=== PATIENT | female | born 1955 | race Caucasian/White ===

== ENCOUNTER → 2016-10-13 | Outpatient (CLI) | payer BC ==
[~2016-10-13] MED LIST: ALBU1AER9 INH; CHOL1TAB46 PO; CYAN100T6 PO; FLVHFA44 INH; GABA1CAP PO
--- NOTE | 2016-10-13 15:55 | MAMMOGRAPHY REPORT ---
BILATERAL DIGITAL SCREENING MAMMOGRAM WITH CAD: 10/13/2016 CLINICAL HISTORY: Routine screening. Patient has no complaints. TECHNIQUE: Current study was also evaluated with a Computer Aided Detection (CAD) system. Bilatera l CC and MLO views were obtained. COMPARISON: Comparison is made to exams dated: 10/09/2015 mammogram, 07/24/2013 mammogram, 10/08/2014 mammogram, 07/10/2012 mammogram, 06/11/2010 mammogram - [facility], and 8. BREAST COMPOSITION: The tissue of both breasts is heterogeneously dense, which may obscure small ma sses. FINDINGS: There is an asymmetry with questionable associated architectural distortion seen within t he right superior breast middle depth on the MLO view only, which may represent normal overlapping f ibroglandular tissue although spot compression tomosynthesis views, right XCCL view, and possible br east ultrasound are recommended for further evaluation. The remainder of both breasts are stable compared to prior exams, without suspicious masses, calcifi cations, or areas of architectural distortion noted. IMPRESSION: ACR BI-RADS CATEGORY 0: INCOMPLETE EVALUATION: NEED ADDITIONAL IMAGING EVALUATION Right breast asymmetry, for which additional imaging evaluation is recommended. The patient will be called to schedule an appointment. Approximately 10% of breast cancers are not detected with mammography. A negative mammographic repor t should not delay biopsy if a clinically suggestive mass is present. Jerri Kraus M.D. /:10/13/2016 15:25:10 Record Clerk: Lala ARZOLA(Namrata)(Josef), [facility] letter sent: Addl Imaging 0 BI-RADS Code: ACR BI-RADS Category 0: Incomplete Evaluation: Need Additional Imaging Evaluation
== END | disposition home or self-care (01) ==
LOC: C.MAMM 07:31
PROVIDERS: ATTEND Obstetrics & Gynecology
DX: Z12.31 Encounter for screening mammogram for malignant neoplasm of breast (principal); N64.9 Disorder of breast, unspecified

== ENCOUNTER → 2016-10-21 | Outpatient (CLI) | payer BC ==
--- NOTE | 2016-10-21 12:49 | MAMMOGRAPHY REPORT ---
UNILATERAL RIGHT DIGITAL DIAGNOSTIC MAMMOGRAM TOMOSYNTHESIS AND TARGETED RIGHT ULTRASOUND: 10/21/2016 CLINICAL HISTORY: Callback from screening mammogram for right breast asymmetry. TECHNIQUE: Breast tomosynthesis in addition to standard 2D mammography was performed. Spot bianka alma right MLO and full field right ML 2-D and tomosynthesis images and right X CCL views were obtai jane. COMPARISON: Comparison is made to exams dated: 10/13/2016 mammogram, 10/08/2014 mammogram, 10/09/2015 mammogram, 07/24/2013 mammogram, and 07/10/2012 mammogram - [facility]. BREAST COMPOSITION: The tissue of the right breast is heterogeneously dense, which may obscure smal l masses. FINDINGS: The previously described asymmetry partially effaces on the spot compression MLO view, an d completely effaces on the true lateral view. No architectural distortion is noted on the addition al tomosynthesis images. The asymmetry has the appearance of fibroglandular tissue on the additiona l tomosynthesis images. Targeted ultrasound was performed of the right superior breast in the region of the mammographic asy mmetry. Sonographically normal tissue is seen, without evidence of a mass or other suspicious sonog raphic abnormality. IMPRESSION: ACR-BI-RADS CATEGORY 3: PROBABLY BENIGN, TARGETED ULTRASOUND ACR-BI-RADS CATEGORY 3: ME OBABLY BENIGN Partial effacement of the right superior breast asymmetry, with no suspicious sonographic correlate evident and no architectural distortion seen on the additional views. The asymmetry is probably marium ign and likely represents normal overlapping fibroglandular tissue. Recommend follow-up diagnostic tomosynthesis mammograms and possible ultrasound of the right breast in 6 months to confirm stabilit y. The patient has been verbally notified of the results. Approximately 10% of breast cancers are not detected with mammography. A negative mammographic repor t should not delay biopsy if a clinically suggestive mass is present. Jerri Kraus M.D. /:10/21/2016 10:37:28 Meatcutter: Karolina ARZOLA(R)(M), [facility] letter sent: Follow Up Recommended 3 BI-RADS Code: ACR-BI-RADS Category 3: Probably Benign Ultrasound BI-RADS: ACR-BI-RADS Category 3: P robably Benign
== END | disposition home or self-care (01) ==
LOC: C.MAMM 08:59
PROVIDERS: ATTEND Obstetrics & Gynecology
DX: N64.89 Other specified disorders of breast (principal)

== ENCOUNTER → 2017-04-21 | Outpatient (CLI) | payer BC ==
--- NOTE | 2017-04-21 12:39 | MAMMOGRAPHY REPORT ---
UNILATERAL RIGHT DIGITAL DIAGNOSTIC MAMMOGRAM TOMOSYNTHESIS WITH CAD: 04/21/2017 CLINICAL HISTORY: Six-month follow-up of right breast asymmetry. TECHNIQUE: Breast tomosynthesis in addition to standard 2D mammography was performed. Current study was also evaluated with a Computer Aided Detection (CAD) system. Right CC and MLO 2-D and tomosynthe sis images and right ML tomosynthesis images including C views were obtained. COMPARISON: Comparison is made to exams dated: 10/21/2016 mammogram, 10/21/2016 ultrasound, 10/13/2016 mammogram, 10/09/2015 mammogram, 10/08/2014 mammogram, and 07/24/2013 mammogram - [facility]. BREAST COMPOSITION: The tissue of the right breast is heterogeneously dense, which may obscure small masses. FINDINGS: The previously described asymmetry seen within the right superior breast on the MLO view i s no longer evident on the current exam, with appearance of this region similar to multiple prior exa ms including the 2007 and 2009 exams. The tissue in this region has the appearance of normal fibrogl andular tissue on the tomosynthesis images, without a suspicious mass or architectural distortion not ed in this region. Given the decreased prominence of the asymmetry, and is benign and compatible wit h normal fibroglandular tissue. The remainder of the right breast is stable compared to prior exams, without suspicious masses, calcifications, or areas of architectural distortion noted. IMPRESSION: ACR BI-RADS CATEGORY 2: BENIGN The right breast asymmetry is no longer evident, and is benign and compatible with normal fibroglandu lar tissue. There is no mammographic evidence of malignancy in the right breast. Return to annual ma mmogram screening schedule is recommended, due September 2017. The patient has been verbally notified of the results. Approximately 10% of breast cancers are not detected with mammography. A negative mammographic report should not delay biopsy if a clinically suggestive mass is present. Jerri Kraus M.D. /:04/21/2017 09:09:22 Zipper Repairer: Aysha ARZOLA(Namrata)(Josef), [facility] letter sent: Normal 1/2 BI-RADS Code: ACR BI-RADS Category 2: Benign
== END | disposition home or self-care (01) ==
LOC: C.MAMM 08:32
PROVIDERS: ATTEND Obstetrics & Gynecology
DX: R92.2 Inconclusive mammogram (principal); N64.89 Other specified disorders of breast

== ENCOUNTER 2017-06-12 09:37 | Emergency (ER) | payer BC ==
[~2017-06-12] VITALS: Ht 162.6 cm; Wt 76.1 kg
[2017-06-12 09:46] VITALS: TEMP 36.8
[2017-06-12 10:00] VITALS: O2SAT 97
[2017-06-12 10:28] VITALS: Ht 162.6 cm; Wt 76.1 kg
[2017-06-12 10:51] LABS: BASO % 0.2 %; BASO ABS # 0.02 K/uL (0-0.2); COMPLETE YES; HEMATOCRIT 35.8 % (37-47); IG% 0.3 %; LYMPH % 9.8 %; LYMPH ABS # 1.13 K/uL (1.2-3.4); MEAN CELL VOLUME 87.1 fL (80-100); MEAN CORPUSCULAR HEMOGLOBIN 30.7 pg (25-34); MEAN CORPUSCULAR HGB CONC 35.2 g/dl (32-36); MEAN PLATELET VOLUME 10.1 fL (7.4-10.4); MONO % 9.1 %; NEUT % 80.6 %; PLATELET COUNT 185 K/uL (130-400); RED BLOOD COUNT 4.11 M/uL (4.2-5.4); WHITE BLOOD COUNT 11.48 K/uL (4.8-10.8)
[2017-06-12 11:17] LABS: ALT/SGPT 43 U/L (12-78); BLOOD UREA NITROGEN 15 mg/dl (7-18); BUN/CREATININE RATIO 11.2 (10-20); CALCIUM 9.3 mg/dl (8.5-10.1); CARBON DIOXIDE 24 mmol/L (21-32); CHLORIDE 100 mmol/L (98-107); CREATININE 1.32 mg/dl (0.60-1.20); GLUCOSE 125 mg/dl (70-99); SODIUM 132 mmol/L (136-145)
[2017-06-12 11:29] LABS: ALKALINE PHOSPHATASE 176 U/L (45-117); PHOSPHORUS 3.3 mg/dl (2.5-4.9); THYROID STIMULATING HORMONE 0.795 uIu/ml (0.300-4.500)
[2017-06-12 11:40] LABS: POTASSIUM 3.2 mmol/L (3.5-5.1)
[2017-06-12 11:41] LABS: PARTIAL THROMBOPLASTIN RATIO 1.1; PROTHROMBIN TIME (PATIENT) 11.2 SECONDS (9.0-12.0)
[2017-06-12 11:48] LABS: MAGNESIUM 2.5 mg/dl (1.8-2.4)
[2017-06-12 12:48] VITALS: BP 118/81; PULSE 78; O2SAT 98
--- NOTE | 2017-06-12 16:32 | EMERGENCY ROOM VISIT NOTE ---
History First contact with patient: 09:47 Chief Complaint: CARBON MONOXIDE EXPOSURE Stated Complaint: CARBON MONOXIDE POISONING History of Present Illness The patient is a 61 year old female who presents to the Emergency Room with multiple complaints, including daily headaches, fatigue, feeling cold and thirsty, poor appetite and dizziness. The patient reports that her symptoms started 2 weeks ago after she started to use a cold stove that is located in her living room. The patient does not have carbon monoxide detectors in her home, and is concerned that she has carbon monoxide poisoning. She does report mild shortness of breath. She denies any chest pain. The patient reports that she has seen her PCP within the past month with lab work, echocardiogram, ECG and cried ultrasound studies that have all been normal. She denies any other significant history. She currently denies any pain or myalgias. She denies any recent upper respiratory infection or cough. Review of Systems HEENT: Denies visual problems, hearing loss, tinnitus. Denies difficulty swallowing or oral lesions. Patient doesn't admit dizziness. PULMONARY: Denies cough, sputum production or hemoptysis. She does report mild shortness of breath. CARDIOVASCULAR: Denies chest pain, palpitations, dyspnea on exertion, orthopnea or peripheral edema. GASTROINTESTINAL: Denies diarrhea, constipation, nausea, vomiting, or abdominal pain. GENITOURINARY: Denies dysuria, frequency, urgency or nocturia. NEUROLOGIC: Denies history of epilepsy, CVA, TIA or chronic headaches. MUSCULOSKELETAL: Denies history of joint tenderness/swelling. SKIN: Denies rashes or lesions. PSYCHIATRIC: Denies history of depression or mental illness. ENDOCRINE: Denies history of diabetes or thyroid disorders. Past Medical/Surgical History Medical Problems: (1) Alcohol Abuse-Unspec (2) Anemia Nos (3) Cystic Kidney Disease, Unspecified (4) Depress Disorder-Unspec (5) Diaphragmatic Hernia (6) Hypopotassemia (7) Obsessive-Compulsive Personality Disorder Social History Smoking Status: Never Smoker Alcohol Use: occasionally Housing Status: lives alone Occupation Status: employed Current/Historical Medications Scheduled Gabapentin (Neurontin), 100 MG PO TID Physical Exam Vital Signs Date Time Temp Pulse Resp B/P (MAP) Pulse Ox O2 Delivery O2 Flow Rate FiO2 06/12/17 12:48 78 16 118/81 98 06/12/17 12:00 81 16 114/83 98 Room Air 06/12/17 10:34 77 06/12/17 10:00 97 Room Air 06/12/17 09:59 96 Room Air 06/12/17 09:46 36.8 85 17 118/81 97 Room Air Physical Exam CONSTITUTIONAL: Healthy and well nourished. Alert and oriented X 3 with positive affect. She does not appear in any acute distress. HEENT: Normocephalic, atraumatic. Pupils equal, round and reactive. Ears and nares are clear. No scar icterus or conjunctival injection/pallor. OROPHARYNX: No tonsillar hypertrophy or exudates. NECK: Full active range of motion without discomfort. No JVD or carotid bruits. RESPIRATORY: Clear to auscultation bilaterally with no wheezing, crackles, rhonchi or stridor. CARDIOVASCULAR: Regular rate and rhythm with no murmurs, rubs or gallops. GASTROINTESTINAL: Bowel sounds present in all quadrants. Soft and nontender to palpation. MUSCULOSKELETAL: Full range of motion of all joints without discomfort. INTEGUMENTARY: No rash or other significant dermatologic conditions noted. HEMATOLOGIC: No ecchymosis or petechiae noted. NEUROLOGIC: Cranial nerves II-XII grossly intact. No focal neurologic deficits noted. Medical Decision & Procedures Laboratory Results 06/12/17 10:40 Red Blood Count 4.11, Mean Corpuscular Volume 87.1, Mean Corpuscular Hemoglobin 30.7, Mean Corpuscular Hemoglobin Concent 35.2, Mean Platelet Volume 10.1, Neutrophils (%) (Auto) 80.6, Lymphocytes (%) (Auto) 9.8, Monocytes (%) (Auto) 9.1, Eosinophils (%) (Auto) 0.0, Basophils (%) (Auto) 0.2, Neutrophils # (Auto) 9.26, Lymphocytes # (Auto) 1.13, Monocytes # (Auto) 1.04, Eosinophils # (Auto) 0.00, Basophils # (Auto) 0.02 06/12/17 10:40 06/12/17 11:21 Test 06/12/17 10:40 06/12/17 11:20 06/12/17 11:21 White Blood Count 11.48 K/uL (4.8-10.8) Red Blood Count 4.11 M/uL (4.2-5.4) Hemoglobin 12.6 g/dL (12.0-16.0) Hematocrit 35.8 % (37-47) Mean Corpuscular Volume 87.1 fL (80-100) Mean Corpuscular Hemoglobin 30.7 pg (25-34) Mean Corpuscular Hemoglobin Concent 35.2 g/dl (32-36) Platelet Count 185 K/uL (130-400) Mean Platelet Volume 10.1 fL (7.4-10.4) Neutrophils (%) (Auto) 80.6 % Lymphocytes (%) (Auto) 9.8 % Monocytes (%) (Auto) 9.1 % Eosinophils (%) (Auto) 0.0 % Basophils (%) (Auto) 0.2 % Neutrophils # (Auto) 9.26 K/uL (1.4-6.5) Lymphocytes # (Auto) 1.13 K/uL (1.2-3.4) Monocytes # (Auto) 1.04 K/uL (0.11-0.59) Eosinophils # (Auto) 0.00 K/uL (0-0.5) Basophils # (Auto) 0.02 K/uL (0-0.2) RDW Standard Deviation 41.7 fL (36.4-46.3) RDW Coefficient of Variation 13.0 % (11.5-14.5) Immature Granulocyte % (Auto) 0.3 % Immature Granulocyte # (Auto) 0.03 K/uL (0.00-0.02) Carboxyhemoglobin 0.0 % THgb Anion Gap 8.0 mmol/L (3-11) Est Creatinine Clear Calc Drug Dose 44.1 ml/min Estimated GFR () 50.0 Estimated GFR (Non- 43.1 BUN/Creatinine Ratio 11.2 (10-20) Calcium Level 9.3 mg/dl (8.5-10.1) Phosphorus Level 3.3 mg/dl (2.5-4.9) Total Bilirubin 0.8 mg/dl (0.2-1) Alanine Aminotransferase (ALT/SGPT) 43 U/L (12-78) Alkaline Phosphatase 176 U/L (45-117) Troponin I < 0.015 ng/ml (0-0.045) Total Protein 8.3 gm/dl (6.4-8.2) Albumin 3.4 gm/dl (3.4-5.0) Thyroid Stimulating Hormone (TSH) 0.795 uIu/ml (0.300-4.500) Prothrombin Time 11.2 SECONDS (9.0-12.0) Prothromb Time International Ratio 1.0 (0.9-1.1) Activated Partial Thromboplast Time 29.7 SECONDS (21.0-31.0) Partial Thromboplastin Ratio 1.1 D-Dimer 1190 ug/L FEU (0-500) Magnesium Level 2.5 mg/dl (1.8-2.4) Direct Bilirubin 0.2 mg/dl (0-0.2) Aspartate Amino Transf (AST/SGOT) 26 U/L (15-37) Total Creatine Kinase 190 U/L (26-192) The above labs were reviewed. It is noted that the patient does have an elevated d-dimer of 1190. Troponin is normal. Patient also has mild hyponatremia, leukocytosis with left shift, hypokalemia, hypomagnesemia and elevated alkaline phosphatase. TSH is normal. ED Course Patient history and physical exam were performed. Nurse's notes were reviewed. Vital signs were reviewed and were normal. O2 saturation is 97% on room air. The patient is afebrile and normotensive. She is not tachycardic. I did suggest a comprehensive workup to evaluate for possible causes of her multiple symptoms, and the patient was initially in agreement. However, after placing several orders, the nurse reports that the patient refused all the tests because she has had these tests performed within the past month. I did discuss this with the patient during our initial evaluation. The patient specifically refused a head CT, EKG and chest x-ray. She reported that she would cooperate with lab work but nothing else. IV access was established and labs were drawn. Review of labs shows an elevated d-dimer, hyponatremia, hypokalemia. She also has a mild leukocytosis with left shift and bandemia, elevated creatinine and glucose. I spent approximately 15 minutes with the patient, going over her labs with possible etiologies for these laboratory findings. I did express my concern for her symptoms and elevated d-dimer which could indicate the possibility of a pulmonary embolus. When the patient has what imaging studies need to be performed to rule out pulmonary embolus, I explained CT angiography is preferable. The patient reports that she cannot undergo a CT scan without complete sedation. 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 In the presence of her daughter, she did express understanding of my concern for a possible pulmonary embolus, but is requesting discharge. The case was also discussed with Dr. Gillespie, ED attending physician, who agrees with current workup and outpatient follow-up. The patient was encouraged to return to the emergency department for any progressively worsening symptoms. The patient was happy with plan of care, and denied any significant symptoms at the time of discharge. Medical Decision As discussed in the previous section, with the patient's history and laboratory findings, I am most concerned about the possibility of a pulmonary embolus. Her workup today otherwise is not suggestive of anemia. She is euthyroid. Unfortunate, the patient refused any imaging studies, therefore pneumonia, pneumothorax, congestive heart failure, intracranial bleed and other differentials could not be further evaluated. Medication Reconcilliation Current Medication List: was personally reviewed by me Blood Pressure Screening Patient's blood pressure: Normal blood pressure Impression Primary Impression: Weakness Additional Impressions: Frequent headaches Hypokalemia Shortness of breath Leukocytosis, unspecified Departure Information Referrals Megan Cutler M.D. (PCP) Patient Instructions My [facility] Problem Qualifiers
== END 2017-06-12 12:50 | disposition home or self-care (01) ==
LOC: C.EDB 09:39
DX: R53.1 Weakness (principal); R51 Headache; E87.6 Hypokalemia; R06.02 Shortness of breath; D72.829 Elevated white blood cell count, unspecified; F10.10 Alcohol abuse, uncomplicated

== ENCOUNTER → 2017-06-17 | Outpatient (CLI) | payer BC ==
[~2017-06-17] MED LIST changes: -ALBU1AER9 INH; -CHOL1TAB46 PO; -CYAN100T6 PO; -FLVHFA44 INH
--- NOTE | 2017-06-17 13:12 | DIAGNOSTIC IMAGING REPORT ---
CHEST 2 VIEWS ROUTINE HISTORY: 61 years-old Female COUGH acute cough with shortness of breath COMPARISON: Chest radiograph 12/09/2015, CTA chest 01/02/2016 TECHNIQUE: PA and lateral views of the chest FINDINGS: Cardiomediastinal and hilar silhouettes are within normal limits. There is no pneumothorax, pleural effusion, focal airspace consolidation or overt pulmonary edema. Bones are grossly intact. Partially imaged lesion of the left proximal humerus appears to demonstrate rings and arcs morphology suggesting chondroid lesion. IMPRESSION: 1. No acute cardiopulmonary process. 2. Partially imaged lesion of the proximal left humerus suggests an endochondroma. The above report was generated using voice recognition software. It may contain grammatical, syntax or spelling errors. Electronically signed by: Sergei Morris M.D. 06/17/2017 1:11 PM Dictated Date/Time: 06/17/2017 1:08 PM
--- NOTE | 2017-06-17 13:55 | DIAGNOSTIC IMAGING REPORT ---
LUNG IMAGING VQ CLINICAL HISTORY: 61 years-old Female presenting with COUGH, no history of pulmonary hypertension. TECHNIQUE: Immediately following the inhalation of 33 mCi of technetium 99 M DTPA for the ventilation scan and the intravenous administration of 5.7 mCi of technetium 99 M MAA for the perfusion scan, anterior, oblique, lateral, and posterior views of the chest were obtained. Modified PIOPED II criteria were utilized for assessment. COMPARISON: Chest x-ray performed earlier the same day. FINDINGS: No mismatched defects are identified on this examination. Perfusion and ventilation to both lungs is preserved. Evidence of ingested/swallowed ventilation radiotracer with activity noted in the stomach and proximal small bowel. Reference: Modified PIOPED II criteria Normal: No perfusion defects. Very low likelihood ratio: Nonsegmental, perfusion defect < chest x-ray lesion, 1-3 small segmental defects, solitary triple matched defect (< or = 1 segment) in mid or upper lung, stripe sign, solitary large pleural effusion, > or = to 2 matched defects with regionally normal chest x-ray. High likelihood ratio: > or = 2 large mismatch segmental defects. Nondiagnostic: All other findings. IMPRESSION: Normal. Electronically signed by: Marcial Chaparro M.D. 06/17/2017 1:54 PM Dictated Date/Time: 06/17/2017 1:52 PM
== END | disposition home or self-care (01) ==
LOC: C.NUCL 12:20
PROVIDERS: ATTEND Physician Assistant
DX: R06.02 Shortness of breath (principal); R79.89 Other specified abnormal findings of blood chemistry; R05 Cough

== ENCOUNTER → 2017-10-17 | Outpatient (CLI) | payer OTHER ==
[~2017-10-17] MED LIST changes: +GABA100C13 PO; -GABA1CAP PO
--- NOTE | 2017-10-17 13:59 | MAMMOGRAPHY REPORT ---
BILATERAL DIGITAL SCREENING MAMMOGRAM TOMOSYNTHESIS WITH CAD: 10/17/2017 CLINICAL HISTORY: Routine screening. Patient has no complaints. TECHNIQUE: Breast tomosynthesis in addition to standard 2D mammography was performed. Current study was also evaluated with a Computer Aided Detection (CAD) system. COMPARISON: Comparison is made to exams dated: 04/21/2017 mammogram, 10/21/2016 mammogram, 10/21/2016 u ltrasound, 10/13/2016 mammogram, 10/09/2015 mammogram, and 10/08/2014 mammogram - [facility]. BREAST COMPOSITION: The tissue of both breasts is heterogeneously dense, which may obscure small mas ses. FINDINGS: No suspicious masses, calcifications, or areas of architectural distortion are noted in ei ther breast. There has been no significant interval change compared to prior exams. IMPRESSION: ACR BI-RADS CATEGORY 1: NEGATIVE There is no mammographic evidence of malignancy. A 1 year screening mammogram is recommended. The pa tient will receive written notification of the results. Approximately 10% of breast cancers are not detected with mammography. A negative mammographic report should not delay biopsy if a clinically suggestive mass is present. Jerri Kraus M.D. ah/:10/17/2017 07:45:30 Alarm Installer: Denise ARZOLA(R)(M), [facility] letter sent: Normal 1/2 BI-RADS Code: ACR BI-RADS Category 1: Negative
== END | disposition home or self-care (01) ==
LOC: C.MAMM 07:28
PROVIDERS: ATTEND Obstetrics & Gynecology
DX: Z12.31 Encounter for screening mammogram for malignant neoplasm of breast (principal)

== ENCOUNTER 2023-05-12 09:37 | Observation (INO) ==
[2023-05-12 11:09] LABS: Basophils # (auto) 0.01 K/uL (0.00-0.20); Basophils % (auto) 0.2 %; Hematocrit (blood only) 41.6 % (37.0-47.0); Hemoglobin 14.3 g/dl (12.0-16.0); Immature Granulocytes # (auto) 0.01 K/uL (0.01-0.20); Immature Granulocytes % (auto) 0.2 %; Lymphocytes # (auto) 0.35 K/uL (1.20-3.40); Lymphocytes % (auto) 7.2 %; Mean Corpuscular Hemoglobin 29.9 pg (25.0-34.0); Mean Corpuscular Hgb Conc 34.4 g/dL (32.0-36.0); Mean Corpuscular Volume 86.8 fL (80.0-100.0); Mean Platelet Volume 10.1 fL (9.4-12.4); Monocytes # (auto) 0.45 K/uL (0.11-0.59); Monocytes % (auto) 9.3 %; Neutrophils # (auto) 4.01 K/uL (1.40-6.50); Neutrophils % (auto) 83.1 %; Platelet Count 142 K/uL (130-400); RDW Coefficient of Variation 12.7 % (11.5-14.5); RDW Standard Deviation 39.9 fL (36.4-46.3); Red Blood Count 4.79 M/uL (4.20-5.40); White Blood Count 4.83 K/ul (4.8-10.8)
[2023-05-12 11:22] LABS: Alanine Aminotransferase 22 U/L (7-52); Albumin Level 4.9 gm/dl (3.4-5.0); Alkaline Phosphatase 107 U/L (34-104); Anion Gap 12 (3-11); Aspartate Aminotransferase 26 U/L (13-39); BUN Creatinine Ratio 16.1 (10-20); Bilirubin,Total 0.5 mg/dl (0.2-1.0); Blood Urea Nitrogen 15 mg/dl (6-23); Calcium 9.4 mg/dl (8.6-10.3); Carbon Dioxide 21 mmol/L (21-32); Chloride 105 mmol/L (98-107); Est GFR (African American) 73.2 ml/min; Est GFR (Non-African American) 63.1 ml/min; Globulin 2.5 gm/dl (2.5-4.0); Glucose 126 mg/dl (70-99(Fasting)); Potassium 3.5 mmol/L (3.5-5.1); Sodium 138 mmol/L (136-145); Total Protein 7.4 gm/dl (6.0-8.3)
[2023-05-12] MEDS ORDERED: ACETAMINOPHEN 500 MG TAB PO STA (16:15)
[2023-05-12] MEDS: SODIUM CHLORIDE 0.9% 1,000 ML IV SCH ×2 (16:27→16:34)
[2023-05-12] MEDS ORDERED: SODIUM CHLORIDE 0.9% 500 ML IV ONE ×2 (16:29→19:10)
--- NOTE | 2023-05-12 17:14 | Emergency Department Note ---
Impression & Plan Weakness, COVID-19, Adenovirus infection, Back pain, Accidental fall ED Provider Note INFORMANT: Patient ED PROVIDER(S): Ugo Palomares MD CHIEF COMPLAINT: Dizziness and weakness PLAN: Disposition: Admitted Outpatient prescription management: none Referral: None MEDICAL DECISION MAKING: Patient was seen at a time of high volume and high acuity. Protocol laboratory testing was performed initially in triage. Patient presented because of weakness and dizziness patient was febrile. She had a nonfocal examination. Patient had testing performed and was found to have a positive COVID and adenovirus. Patient's CBC and chemistry panel were unremarkable. Patient did have a borderline elevation of her cardiac troponin without much change in repeat. Patient had normal cardiac monitoring. Chest x-ray was unremarkable. Patient also had x-ray imaging of the lumbar and thoracic spine because of back pain after the fall. No acute abnormality. I did discuss CT imaging and the patient declined. After hydration the patient felt significantly better. She still had a fluctuation in her blood pressure orthostatic testing. I suspect given the patient's lack of oral intake recently likely due to the COVID-19 and adenovirus infections and she is mildly dehydrated. Further management in the hospital felt to be appropriate. Consultation was made with Dr. Oscar Doll of the [facility] service. Patient was evaluated in the ER for further management. Care/management discussed with: none Level of care consideration(s): After review of the information above and other included data, I feel the patient requires escalation of care to admission. Triage Nursing notes: reviewed and agree them. Vital Signs: reviewed and remarkable for fever Additional History obtained from: none Chronic Medical/Social Conditions affecting care: none Prior /Outside records reviewed: none Differential Diagnosis: Infection, dehydration, metabolic abnormality, hypo/hyperglycemia, electrolyte disturbance, anemia, hypoxia, cardiac sources, intracerebral event, toxicologic, neurologic, as well as other pathologies. Diagnostics, independently interpreted by me: ECG: none. Cardiac Monitoring: Cardiac monitoring ordered by me: The patient was placed on continuous cardiac monitoring and observed. It revealed a normal sinus rhythm at 70 beats per minute without ectopy or evidence of dysrhythmia. No ST-T wave abnormality appreciated. Medical decision rules: none Imaging studies: X-rays as above. Patient refused CT imaging. HPI: The patient is a 67-year-old female who arrives for evaluation of dizziness and weakness. Patient notes she is felt under the weather for 2 days. She states that it is difficult to get up and move around. She got weak and fell last night. She denies hitting her head. She does note that she strained her back in the thoracic and lumbar region. Patient has had a decreased appetite and has not been eating or drinking well. She also notes fevers, chills. Pt denies LOC, headache, diaphoresis, visual changes, neck pain, chest pain, breathing difficulties, nausea, vomiting, abdominal pain, melena, hematochezia, urinary symptoms, numbness, lymphadenopathy, rash, or other complaints. PAST MEDICAL HISTORY: See Below, asthma PAST SURGICAL HISTORY: See Below, SOCIAL HISTORY: See Below, non-smoker HOME MEDICATIONS: See Below ALLERGIES: See Below VITALS: See Below PHYSICAL EXAMINATION: GENERAL: Awake, tired appearing, in no distress HENT: Normocephalic, atraumatic. Oropharynx unremarkable. EYES: Normal conjunctiva. Sclera non-icteric. NECK: Inspection normal. Non-tender. Supple. No nuchal rigidity. FROM. No masses. RESPIRATORY: Clear to auscultation. No wheezes. No rales. Normal respiratory effort. CARDIAC: Normal rate. Normal rhythm. No murmurs. No rubs. Extremities warm and well perfused. Pulses equal. No JVD. GI: Soft, non-distended. No tenderness to palpation. No rebound or guarding. No masses. RECTAL: Deferred. MUSCULOSKELETAL: Atraumatic. Chest examination reveals no tenderness. The back is symmetrical on inspection without obvious abnormality. There is no CVA tenderness to palpation. Mild thoracic and lumbar paraspinal muscle tenderness to palpation. No step-offs. No midline bony tenderness. No joint edema. LOWER EXTREMITIES: Calves are equal size bilaterally and non-tender. No edema. No discoloration. NEURO: Normal sensorium. No sensory or motor deficits noted. SKIN: No rash or jaundice noted. PROCEDURES: none CRITICAL CARE: none OBSERVATION NOTE: none Past Med/Surg History Medical History (Updated 05/12/23 @ 18:07 by Ugo Palomares MD) Moderate persistent asthma Overweight (BMI 25.0-29.9) Shortness of breath Shortness of breath Family History (Updated 03/12/20 @ 15:46 by JULIA Cuevas) Other Cancer Lung disease Denies family history of Diabetes Heart disease Social History (Updated 03/12/20 @ 15:45 by JULIA Cuevas) Smoking Status: Never smoker Hx Alcohol Use: No Hx Substance Use: No Feels Safe at Home: Yes Allergies Allergies Allergy/AdvReac Type Severity Reaction Status Date / Time Sulfa (Sulfonamide Allergy Mild "SULFA Verified 03/12/20 08:54 Antibiotics) DRUGS" Penicillins Allergy Unknown Verified 03/12/20 08:54 wheat Allergy Unknown . Verified 03/12/20 08:54 ORANGE JELLO Allergy Unknown CAN'T GET Uncoded 03/12/20 08:54 BREATH Home Meds Home Medications Medication Instructions Recorded Confirmed gabapentin 100 mg capsule See Rx Instructions .Route .COMPLEX 03/12/20 05/12/23 Results & Data (ED) Vital Signs Vital Signs - 24 hr 05/12/23 09:47 05/12/23 16:36 05/12/23 15:38 Temperature 37.8 C H Temperature Source Temporal Artery Scan Pulse Rate - Lying Pulse Rate - Sitting Pulse Rate - Standing Pulse Rate 100 H 97 H Pulse Rate [Apical] Pulse Rate from SpO2 Sensor Pulse Rhythm [Apical] Pulse Strength [Apical] Respiratory Rate 20 Respiratory Effort / Characteristics Non-Labored Respiratory Depth Normal Respiratory Pattern Blood Pressure - Lying Blood Pressure - Sitting Blood Pressure- Standing Blood Pressure 124/84 Blood Pressure [Right Arm] Blood Pressure Mean 97 Blood Pressure Mean [Right Arm] Blood Pressure Position [Right Arm] Pulse Oximetry 95 98 Oxygen Delivery Method Room Air Room Air Sepsis Recent Fever Within 48 Hours No Sepsis New/Unexplained Change in Mental Status N/A Sepsis Action Taken by Nursing No Action Required 05/12/23 15:38 05/12/23 16:30 05/12/23 17:31 Temperature 36.8 C Temperature Source Oral Pulse Rate - Lying Pulse Rate - Sitting Pulse Rate - Standing Pulse Rate 98 H 87 Pulse Rate [Apical] Pulse Rate from SpO2 Sensor 98 H 87 Pulse Rhythm [Apical] Pulse Strength [Apical] Respiratory Rate 17 21 17 Respiratory Effort / Characteristics Non-Labored Spontaneous Respiratory Depth Normal Respiratory Pattern Regular Blood Pressure - Lying Blood Pressure - Sitting Blood Pressure- Standing Blood Pressure 153/99 H 119/96 Blood Pressure [Right Arm] Blood Pressure Mean 117 103 Blood Pressure Mean [Right Arm] Blood Pressure Position [Right Arm] Pulse Oximetry 96 92 94 Oxygen Delivery Method Room Air Room Air Room Air Sepsis Recent Fever Within 48 Hours Sepsis New/Unexplained Change in Mental Status Sepsis Action Taken by Nursing 05/12/23 18:00 05/12/23 18:03 05/12/23 19:00 Temperature 36.8 C Temperature Source Oral Pulse Rate - Lying 77 Pulse Rate - Sitting 83 Pulse Rate - Standing 87 Pulse Rate 81 Pulse Rate [Apical] 82 Pulse Rate from SpO2 Sensor 81 Pulse Rhythm [Apical] Regular Pulse Strength [Apical] Normal Respiratory Rate 21 17 Respiratory Effort / Characteristics Non-Labored Spontaneous Respiratory Depth Normal Respiratory Pattern Regular Blood Pressure - Lying 121/94 Blood Pressure - Sitting 114/67 Blood Pressure- Standing 83/56 L Blood Pressure 109/73 Blood Pressure [Right Arm] 98/67 L Blood Pressure Mean 85 Blood Pressure Mean [Right Arm] 77 Blood Pressure Position [Right Arm] Semi-fowlers Pulse Oximetry 96 94 Oxygen Delivery Method Room Air Room Air Sepsis Recent Fever Within 48 Hours Sepsis New/Unexplained Change in Mental Status Sepsis Action Taken by Nursing Laboratory Data 05/12/23 10:45 05/12/23 10:45 Lab Results 05/12/23 05/12/23 05/12/23 Range/Units 10:45 10:45 16:30 WBC 4.83 (4.8-10.8) K/ul RBC 4.79 (4.20-5.40) M/uL Hgb 14.3 (12.0-16.0) g/dl Hct 41.6 (37.0-47.0) % MCV 86.8 (80.0-100.0) fL MCH 29.9 (25.0-34.0) pg MCHC 34.4 (32.0-36.0) g/dL RDW Std Deviation 39.9 (36.4-46.3) fL RDW Coeff of Raymond 12.7 (11.5-14.5) % Plt Count 142 (130-400) K/uL MPV 10.1 (9.4-12.4) fL Immature Gran % (Auto) 0.2 % Neut % (Auto) 83.1 % Lymph % (Auto) 7.2 % [place] % (Auto) 9.3 % Eos % (Auto) 0.0 % Baso % (Auto) 0.2 % Neut # (Auto) 4.01 (1.40-6.50) K/uL Lymph # (Auto) 0.35 L (1.20-3.40) K/uL [place] # (Auto) 0.45 (0.11-0.59) K/uL Eos # (Auto) 0.00 (0.00-0.50) K/uL Baso # (Auto) 0.01 (0.00-0.20) K/uL Immature Gran # (Auto) 0.01 (0.01-0.20) K/uL Sodium 138 (136-145) mmol/L Potassium 3.5 (3.5-5.1) mmol/L Chloride 105 (98-107) mmol/L Carbon Dioxide 21 (21-32) mmol/L Anion Gap 12 H (3-11) BUN 15 (6-23) mg/dl Creatinine 0.93 (0.6-1.2) mg/dl Est Cr Clr Drug Dosing Not Reportable Est GFR ( Amer) 73.2 ml/min Est GFR (Non-Af Amer) 63.1 ml/min BUN/Creatinine Ratio 16.1 (10-20) Glucose 126 H (70-99(Fasting)) mg/dl Calcium 9.4 (8.6-10.3) mg/dl Total Bilirubin 0.5 (0.2-1.0) mg/dl AST 26 (13-39) U/L ALT 22 (7-52) U/L Alkaline Phosphatase 107 H (34-104) U/L Troponin I High Sens (0-14) pg/ml Total Protein 7.4 (6.0-8.3) gm/dl Albumin 4.9 (3.4-5.0) gm/dl Globulin 2.5 (2.5-4.0) gm/dl Albumin/Globulin Ratio 2.0 (0.9-2) Urine Color Urine Appearance (Clear) Urine pH (4.5-7.5) Ur Specific [place] (1.000-1.030) Urine Protein (Negative) Urine Glucose (UA) (Negative) Urine Ketones (Negative) Urine Blood (Negative) Urine Nitrite (Negative) Urine Bilirubin (Negative) Urine Urobilinogen (Negative) Ur Leukocyte Esterase (Negative) Urine WBC (Auto) (0-5) /hpf Urine RBC (Auto) (0-4) /hpf U Hyaline Cast (Auto) (0-5) /lpf U Epithel Cells (Auto) (0-5) /lpf Urine Bacteria (Auto) (Negative) Adenovirus (PCR) DETECTED A* (NotDetected) B. pertussis DNA (PCR) Not Detected (NotDetected) B.parapertussis DNA PCR Not Detected (NotDetected) C. pneumoniae DNA (PCR) Not Detected (NotDetected) Coronavirus OC43 (PCR) Not Detected (NotDetected) Coronavirus HKU1 (PCR) Not Detected (NotDetected) Coronavirus 229E (PCR) Not Detected (NotDetected) SARS-CoV-2 (PCR) DETECTED A* (NotDetected) Coronavirus NL63 (PCR) Not Detected (NotDetected) Human Metapneumovir PCR Not Detected (NotDetected) Influenza Type A (PCR) Not Detected (NotDetected) Influenza Type B (PCR) Not Detected (NotDetected) M. pneumoniae (PCR) Not Detected (NotDetected) Parainfluenza 1 (PCR) Not Detected (NotDetected) Parainfluenza 2 (PCR) Not Detected (NotDetected) Parainfluenza 3 (PCR) Not Detected (NotDetected) Parainfluenza 4 (PCR) Not Detected (NotDetected) RSV (PCR) Not Detected (NotDetected) Entero/Rhino (PCR) Not Detected (NotDetected) 05/12/23 05/12/23 05/12/23 Range/Units 17:49 18:00 21:06 WBC (4.8-10.8) K/ul RBC (4.20-5.40) M/uL Hgb (12.0-16.0) g/dl Hct (37.0-47.0) % MCV (80.0-100.0) fL MCH (25.0-34.0) pg MCHC (32.0-36.0) g/dL RDW Std Deviation (36.4-46.3) fL RDW Coeff of Raymond (11.5-14.5) % Plt Count (130-400) K/uL MPV (9.4-12.4) fL Immature Gran % (Auto) % Neut % (Auto) % Lymph % (Auto) % [place] % (Auto) % Eos % (Auto) % Baso % (Auto) % Neut # (Auto) (1.40-6.50) K/uL Lymph # (Auto) (1.20-3.40) K/uL [place] # (Auto) (0.11-0.59) K/uL Eos # (Auto) (0.00-0.50) K/uL Baso # (Auto) (0.00-0.20) K/uL Immature Gran # (Auto) (0.01-0.20) K/uL Sodium (136-145) mmol/L Potassium (3.5-5.1) mmol/L Chloride (98-107) mmol/L Carbon Dioxide (21-32) mmol/L Anion Gap (3-11) BUN (6-23) mg/dl Creatinine (0.6-1.2) mg/dl Est Cr Clr Drug Dosing Est GFR ( Amer) ml/min Est GFR (Non-Af Amer) ml/min BUN/Creatinine Ratio (10-20) Glucose (70-99(Fasting)) mg/dl Calcium (8.6-10.3) mg/dl Total Bilirubin (0.2-1.0) mg/dl AST (13-39) U/L ALT (7-52) U/L Alkaline Phosphatase (34-104) U/L Troponin I High Sens 14.6 H 16.7 H (0-14) pg/ml Total Protein (6.0-8.3) gm/dl Albumin (3.4-5.0) gm/dl Globulin (2.5-4.0) gm/dl Albumin/Globulin Ratio (0.9-2) Urine Color Dark Yellow Urine Appearance Clear (Clear) Urine pH 5.5 (4.5-7.5) Ur Specific [place] 1.024 (1.000-1.030) Urine Protein 1+ H (Negative) Urine Glucose (UA) Negative (Negative) Urine Ketones 2+ H (Negative) Urine Blood Trace H (Negative) Urine Nitrite Negative (Negative) Urine Bilirubin 1+ H (Negative) Urine Urobilinogen Negative (Negative) Ur Leukocyte Esterase Trace H (Negative) Urine WBC (Auto) 1-5 (0-5) /hpf Urine RBC (Auto) 0-4 (0-4) /hpf U Hyaline Cast (Auto) 1-5 (0-5) /lpf U Epithel Cells (Auto) >30 H (0-5) /lpf Urine Bacteria (Auto) Negative (Negative) Adenovirus (PCR) (NotDetected) B. pertussis DNA (PCR) (NotDetected) B.parapertussis DNA PCR (NotDetected) C. pneumoniae DNA (PCR) (NotDetected) Coronavirus OC43 (PCR) (NotDetected) Coronavirus HKU1 (PCR) (NotDetected) Coronavirus 229E (PCR) (NotDetected) SARS-CoV-2 (PCR) (NotDetected) Coronavirus NL63 (PCR) (NotDetected) Human Metapneumovir PCR (NotDetected) Influenza Type A (PCR) (NotDetected) Influenza Type B (PCR) (NotDetected) M. pneumoniae (PCR) (NotDetected) Parainfluenza 1 (PCR) (NotDetected) Parainfluenza 2 (PCR) (NotDetected) Parainfluenza 3 (PCR) (NotDetected) Parainfluenza 4 (PCR) (NotDetected) RSV (PCR) (NotDetected) Entero/Rhino (PCR) (NotDetected) Administered Medications Sodium Chloride (Nss) 1,000 mls @ 125 mls/hr IV .Q8H LUCIE Stop: 06/11/23 16:29 Last Admin: 05/13/23 01:04 Dose: Not Given Documented By: Admin: 05/12/23 16:34 Dose: Not Given Documented By: TACOS Discontinued Medications Acetaminophen (Acetaminophen 500 Mg Tab) 1,000 mg PO NOW STA Stop: 05/12/23 16:16 Last Admin: 05/12/23 16:27 Dose: 1,000 mg Documented By: TACOS Sodium Chloride (Nss) 500 mls @ 999 mls/hr IV .Q31M ONE Stop: 05/12/23 16:59 Last Infusion: 05/12/23 17:27 Dose: 0 mls/hr Documented By: Admin: 05/12/23 16:34 Dose: 999 mls/hr Documented By: TACOS Sodium Chloride (Nss) 500 mls @ 999 mls/hr IV .Q31M ONE Stop: 05/12/23 19:40 Last Infusion: 05/12/23 20:14 Dose: 0 mls/hr Documented By: Admin: 05/12/23 19:48 Dose: 999 mls/hr Documented By: TACOS Ibuprofen (Ibuprofen 600 Mg Tab) 600 mg PO NOW STA Stop: 05/12/23 20:00 Last Admin: 05/12/23 21:20 Dose: 600 mg Documented By: TACOS Imaging Data Radiologist's Impression: Chest X-Ray 05/12/23 16:29 XR chest 1V not portable CLINICAL HISTORY: fever TECHNIQUE: Single frontal radiograph of the chest was obtained. Comparison: Comparison is made to chest radiograph 05/10/[address] chest 01/02/2016 FINDINGS: No lines and tubes are seen. Cardiomegaly is noted. The lungs are clear. No evidence of pleural effusion or pneumothorax. Partial visualization of a sclerotic lesion in the left humeral medulla, likely benign and unchanged from prior exams. IMPRESSION: No acute abnormalities and in particular no radiographic evidence of pneumonia. ACT 112: Negative or not required by law. Electronically signed by: Hal Nelson M.D. 05/12/2023 5:24 PM Lumbar Spine X-Ray 05/12/23 16:29 XR lumbar spine min 4V routine CLINICAL HISTORY: fall TECHNIQUE: 5 views of the lumbar spine were obtained. Comparison: Comparison is made to lumbar spine radiograph 05/12/2023 FINDINGS: There is no evidence of an acute fracture. Degenerative changes are seen in the lumbar spine. The alignment is normal. Partial visualization of calcifications i n the pelvis likely representing calcified fibroids. IMPRESSION: Degenerative changes as above without acute fracture or subluxation. ACT 112: Negative or not required by law. Electronically signed by: Hal Nelson M.D. 05/12/2023 5:30 PM Thoracic Spine X-Ray 05/12/23 16:29 XR thoracic spine 3V routine CLINICAL HISTORY: fall TECHNIQUE: 3 views of the thoracic spine were obtained. Comparison: None available at the time of this dictation. FINDINGS: No fractures or subluxations are identified. Degenerative changes are seen in the thoracic spine. Alignment appears unremarkable. Prevertebral soft tissues are within normal limits. IMPRESSION: Degenerative changes as above without acute fracture or subluxation. ACT 112: Negative or not required by law. Electronically signed by: Hal Nelson M.D. 05/12/2023 5:26 PM Discharge Plan Visit Data Chief Complaint: Dizziness Stated Complaint: DIZZY,WEAKNESS,FELL,BACK PAIN ED Provider: Ugo Palomares Discharge Problem: Weakness, COVID-19, Adenovirus infection, Back pain, Accidental fall Discharge Instructions Interventions: ED Discharge Assessment Last Done: 05/13/23 01:05
--- NOTE | 2023-05-12 17:25 | XRay Report ---
XR chest 1V not portable CLINICAL HISTORY: fever TECHNIQUE: Single frontal radiograph of the chest was obtained. Comparison: Comparison is made to chest radiograph 05/10/[address] chest 01/02/2016 FINDINGS: No lines and tubes are seen. Cardiomegaly is noted. The lungs are clear. No evidence of pleural effus ion or pneumothorax. Partial visualization of a sclerotic lesion in the left humeral medulla, likely benign and unchanged from prior exams. IMPRESSION: No acute abnormalities and in particular no radiographic evidence of pneumonia. ACT 112: Negative or not required by law. Electronically signed by: Hal Nelson M.D. 05/12/2023 5:24 PM
--- NOTE | 2023-05-12 17:28 | XRay Report ---
XR thoracic spine 3V routine CLINICAL HISTORY: fall TECHNIQUE: 3 views of the thoracic spine were obtained. Comparison: None available at the time of this dictation. FINDINGS: No fractures or subluxations are identified. Degenerative changes are seen in the thoracic spine. Ali gnment appears unremarkable. Prevertebral soft tissues are within normal limits. IMPRESSION: Degenerative changes as above without acute fracture or subluxation. ACT 112: Negative or not required by law. Electronically signed by: Hal Nelson M.D. 05/12/2023 5:26 PM
--- NOTE | 2023-05-12 17:32 | XRay Report ---
XR lumbar spine min 4V routine CLINICAL HISTORY: fall TECHNIQUE: 5 views of the lumbar spine were obtained. Comparison: Comparison is made to lumbar spine radiograph 05/12/2023 FINDINGS: There is no evidence of an acute fracture. Degenerative changes are seen in the lumbar spine. The ali gnment is normal. Partial visualization of calcifications in the pelvis likely representing calcified fibroids. IMPRESSION: Degenerative changes as above without acute fracture or subluxation. ACT 112: Negative or not required by law. Electronically signed by: Hal Nelson M.D. 05/12/2023 5:30 PM
[2023-05-12 17:41] LABS: Bordetella parapertussis PCR Not Detected (NotDetected); Bordetella pertussis PCR Not Detected (NotDetected); Chlamydia pneumoniae PCR Not Detected (NotDetected); Coronavirus 229E PCR Not Detected (NotDetected); Coronavirus HKU1 PCR Not Detected (NotDetected); Coronavirus NL63 PCR Not Detected (NotDetected); Coronavirus OC43PCR Not Detected (NotDetected); Human Metapneumovirus PCR Not Detected (NotDetected); Influenza A PCR Not Detected (NotDetected); Influenza B PCR Not Detected (NotDetected); Mycoplasma pneumoniae PCR Not Detected (NotDetected); Parainfluenza Virus 1 PCR Not Detected (NotDetected); Parainfluenza Virus 2 PCR Not Detected (NotDetected); Parainfluenza Virus 3 PCR Not Detected (NotDetected); Parainfluenza Virus 4 PCR Not Detected (NotDetected); Respiratory Syncytial VirusPCR Not Detected (NotDetected); Rhinovirus/Enterovirus PCR Not Detected (NotDetected)
[2023-05-12 18:00] LABS: Coronavirus CoV-2 (COVID19)PCR DETECTED (NotDetected)
[2023-05-12 18:01] LABS: Adenovirus PCR DETECTED (NotDetected)
[2023-05-12 18:28] LABS: Appearance Urine Clear (Clear); Bacteria Urine Automated Negative (Negative); Blood Urine Trace (Negative); Color Urine Dark Yellow; Epithelial Cell Urine Auto >30 /lpf (0-5); Glucose Urine UA Negative (Negative); Ketones Urine 2+ (Negative); Leukocyte Esterase Urine Trace (Negative); Nitrite Urine Negative (Negative); Protein Urine 1+ (Negative); RBC Urine Automated 0-4 /hpf (0-4); Specific Gravity Urine 1.024 (1.000-1.030); Urobilinogen Urine Negative (Negative); pH Urine 5.5 (4.5-7.5)
[2023-05-12 18:31] LABS: Bilirubin Urine 1+ (Negative)
[2023-05-12] MEDS ORDERED: IBUPROFEN 600 MG TAB PO STA (19:59)
--- NOTE | 2023-05-12 22:02 | History & Physical Report ---
Date of Service May 12, 2023 Assessment & Plan (1) Weakness: Plan: 67yo Female with PMH asthma, R leg surgery here for concern weakness. Weakness -in the setting of COVID, adenovirus, and poor oral intake -Received 1L NSS in ED, symptoms improved -admit to med/tele -PT/OT ordered. Elevated Trop -trop 14.6 repeat pending COVID19/Adenovirus -ordered isolation precautions -given normal O2 sat on RA no SOB noted no wheeze, no need to treat COVID19 at this time R Knee pain -continue gabapentin FENa: regular Code Status: Full DVT PPX: SCDs PT/OT: ordered Dispo: med/tele Deborah Gordon D.O. PGY 3, FCM (2) COVID-19: (3) Adenovirus infection: History of Present Illness Chief Complaint: Weakness Primary Care Provider: Megan Cutler MD 67yo Female with PMH asthma, R leg surgery here for concern weakness. Patient states she was feeling poorly for the last few weeks, states other people noticed her decreased appetite. States last night she developed chills, was trying to get back in bed however had back pain leg weakness fell on the floor instead, denies hitting her head. She was able to return to bed and sleep. In the morning she continued to have back pain, states she crawled downstairs and sat on the couch, afterwards was not able to get off the couch. She is uncertain if she had a fever, denies SOB N/V chest pain abd pain D/C, denies URI symptoms but did take a decongestant. Patient states she typically has a poor appetite eats maybe one meal a day, has been more difficult since she started feeling unwell. She has been stressed recently, her friend is getting treated for cancer. In ED patient was given tylenol and NSS 1L, states she felt improved afterwards. Of note she was found to be positive for COVID and Adenovirus, patient states she got it after babysitting children who were COVID positive. Patient states she lives alone, does not need assistance while walking. She does have a cat that scratched her face recently. States she has not needed regular medication for ashtma in years, does use a prednisone taper during change of seasons. Allergies Allergy/AdvReac Type Severity Reaction Status Date / Time Sulfa (Sulfonamide Allergy Mild "SULFA Verified 03/12/20 08:54 Antibiotics) DRUGS" Penicillins Allergy Unknown Verified 03/12/20 08:54 wheat Allergy Unknown . Verified 03/12/20 08:54 ORANGE JELLO Allergy Unknown CAN'T GET Uncoded 03/12/20 08:54 BREATH Home Medications Medication Instructions Recorded Confirmed Type gabapentin 100 mg capsule See Rx Instructions .Route .COMPLEX 03/12/20 05/12/23 History Past Med/Surg History Medical History (Updated 05/12/23 @ 18:07 by Ugo Palomares MD) Moderate persistent asthma Overweight (BMI 25.0-29.9) Shortness of breath Shortness of breath Family History (Updated 03/12/20 @ 15:46 by JULIA Cuevas) Other Cancer Lung disease Denies family history of Diabetes Heart disease Social History (Updated 03/12/20 @ 15:45 by JULIA Cuevas) Smoking Status: Never smoker Hx Alcohol Use: No Hx Substance Use: No Feels Safe at Home: Yes Physical Exam Constitutional: well developed, well nourished, cooperative and comfortable Eyes: PERRL, conjunctivae normal, anicteric sclerae ENMT: external ear and nose normal, oropharynx normal Neck: trachea midline, no thyromegaly Respiratory: normal respiratory effort, lungs clear to auscultation Cardiovascular: RRR, no murmur, no edema Gastrointestinal (Abdomen): Inspection/Auscultation: abdomen normal to inspection Percussion/Palpation: abdomen soft; abdomen nontender Skin: no rashes, warm and dry Results & Data Results & Data Vital Signs (Past 12 Hours) Vital Signs Temp Pulse Pulse Resp BP BP Pulse Ox 05/12/23 19:00 36.8 C 82 17 98/67 L 94 05/12/23 18:00 81 21 109/73 96 05/12/23 17:31 87 17 119/96 94 05/12/23 16:30 98 H 21 153/99 H 92 05/12/23 15:38 36.8 C 17 96 05/12/23 15:38 98 05/12/23 16:36 97 H O2 Del Method 05/12/23 19:00 Room Air 05/12/23 18:00 Room Air 05/12/23 17:31 Room Air 05/12/23 16:30 Room Air 05/12/23 15:38 Room Air 05/12/23 15:38 Room Air 05/12/23 16:36 Supervising Physician Co-Signing Physician Notes Attending addendum: I have physically seen this patient, have supervised the medical residents activities, and agree with the H&P unless as otherwise noted. Assessment and Plan: Acute onset of generalized weakness- Studies positive for COVID-19, adenovirus and generalized poor oral intake Symptoms are somewhat improved after receiving 1 L normal saline in the ED Consult PT/OT Continue IV fluid rehydration Elevated troponin- Troponin 14.6 on admission with repeat pending Likely type II supply/demand mismatch COVID-19/adenovirus- Usual isolation precautions Primarily supportive treatment, no aggressive interventions Resident Activity Tracking Resident Involvement: Resident Care Provided Care Provided: Adult Hospital Medicine
[2023-05-13] MEDS ORDERED: ACETAMINOPHEN 325 MG TAB PO PRN (01:04)
[2023-05-13] MEDS ORDERED: POLYETHYLENE (MIRALAX) 17 GM PACK PO PRN (01:04)
[2023-05-13] MEDS: SODIUM CHLORIDE 0.9% 1,000 ML IV SCH ×3 (01:04→09:26)
[2023-05-13] MEDS: GABAPENTIN 100 MG CAP PO SCH ×2 (01:55→09:26)
--- NOTE | 2023-05-13 08:19 | Hospitalist Progress Note ---
Date of Service May 13, 2023 Assessment & Plan (1) Weakness: Plan: 67yo Female with PMH asthma, R leg surgery here for concern weakness. Weakness -in the setting of COVID, adenovirus, and poor oral intake -Received 1L NSS in ED, symptoms improved -admit to med/tele -PT/OT ordered. Elevated Trop -trop 14.6 repeat 16,19 COVID19/Adenovirus, no pneumonia -ordered isolation precautions -given normal O2 sat on RA no SOB noted no wheeze, no need to treat COVID19 at this time R Knee pain -continue gabapentin Code Status: Full DVT PPX: SCDs PT/OT: ordered (2) COVID-19: (3) Adenovirus infection: Admission and Anticipated Discharge Date Admission Date: May 12, 2023 Results & Data Results & Data Vital Signs (Past 12 Hours) Vital Signs Pulse Pulse Resp BP Pulse Ox O2 Del Method 05/13/23 03:30 58 L 16 109/70 91 Room Air 05/13/23 01:40 59 L 05/12/23 23:00 70 18 107/67 95 Room Air 05/12/23 22:29 70 PG Care Time/CCT Total # of Minutes Spent Total Time Spent with Patient: Total time spent is greater than 50% in coordination of care (as documented) at patient's floor/unit and/or counseling patient: Coding Diagnoses Weakness R53.1 COVID-19 U07.1 Adenovirus infection B34.0
--- NOTE | 2023-05-13 17:23 | Billing Data ---
Date of Service May 13, 2023 Coding Level of Care Code 88360 INT INP/OBS CARE
--- NOTE | 2023-05-13 17:41 | Discharge Summary ---
Date of Service May 13, 2023 Admission HPI Per Admitting Provider 67yo Female with PMH asthma, R leg surgery here for concern weakness. Patient states she was feeling poorly for the last few weeks, states other people noticed her decreased appetite. States last night she developed chills, was trying to get back in bed however had back pain leg weakness fell on the floor instead, denies hitting her head. She was able to return to bed and sleep. In the morning she continued to have back pain, states she crawled downstairs and sat on the couch, afterwards was not able to get off the couch. She is uncertain if she had a fever, denies SOB N/V chest pain abd pain D/C, denies URI symptoms but did take a decongestant. Patient states she typically has a poor appetite eats maybe one meal a day, has been more difficult since she started feeling unwell. She has been stressed recently, her friend is getting treated for cancer. In ED patient was given tylenol and NSS 1L, states she felt improved afterwards. Of note she was found to be positive for COVID and Adenovirus, patient states she got it after babysitting children who were COVID positive. Patient states she lives alone, does not need assistance while walking. She does have a cat that scratched her face recently. States she has not needed regular medication for ashtma in years, does use a prednisone taper during change of seasons. Principal Diagnosis Metabolic encephalopathy secondary to COVID infection present on admission Discharge Exam Patient awake alert appropriate. Heart is regular lungs are clear without wheezes or crackles extremities without edema Discharge Data Allergies Allergy/AdvReac Type Severity Reaction Status Date / Time Sulfa (Sulfonamide Allergy Mild "SULFA Verified 03/12/20 08:54 Antibiotics) DRUGS" Penicillins Allergy Unknown Verified 03/12/20 08:54 wheat Allergy Unknown . Verified 03/12/20 08:54 ORANGE JELLO Allergy Unknown CAN'T GET Uncoded 03/12/20 08:54 BREATH Consultations 05/12/23 19:10 ED Decision to Admit Stat Hospital Course (1) Weakness: 67yo Female with PMH asthma, R leg surgery here for concern weakness. Weakness -in the setting of COVID, adenovirus, and poor oral intake markedly improved patient wishes to go -Received 1L NSS in ED, symptoms improved Elevated Trop, demand ischemia -trop 14.6 repeat 16,19 COVID19/Adenovirus, no pneumonia -given normal O2 sat on RA no SOB noted no wheeze, no need to treat COVID19 at this time offered paxlovid, pt did not want to have RX R Knee pain -continue gabapentin Code Status: Full (2) COVID-19: (3) Adenovirus infection: Total Time Total Time Spent Total Time Spent (In Minutes): greater than 30 minutes were required Discharge Plan Discharge Items Patient Disposition: Home - Self-Care Reason For Visit: WEAKNESS Discharge Diagnosis: weakness from covid infection Activity: Resume your previous activity Non-emergency contact: Primary Care Provider Call non-emergency contact if: your symptoms worsen Follow-up/Referrals: Megan Cutler MD [Primary Care Provider] - Diet: Regular Addtl Attending Provider Instructions: You have been diagnosed with covid infection, it would be recommended that you quarantine yourself for 10 days from your first test or first symptoms, and if at the 10th day you have no symptoms the you can come off quarantine but use common sense precautions. Quarantine means attempting to stay away from people who have not had an active covid infection in the past, and if you have to be around others to wear a mask even if you are indoors, do not share a room to sleep in with others until you are out of quarantine. If you still have symptoms at the 10th day, continue to quarantine until you are symptom free for 48 hours Pending Studies at Discharge: Yes Studies:: urine culture results Stand-Alone Forms: My [facility] [employer], Smoking Cessation Medications and DC Order Prescriptions: Continued gabapentin 100 mg capsule See Rx Instructions .ROUTE .COMPLEX Rx Instructions: Rx is for 200 mg QID but per pt she takes it as 100 mg BID because she cut back Discharge Orders: Discharge Order (Routine); Ordered 05/13/23 Ordered By: Wayne Tineo Admission Data Admit Date/Time: 05/12/23 22:23 Attending Provider: Wayne Tineo Admit Provider: Deborah Gordon Primary Care Provider: Megan Cutler Other Providers: Oscar Doll Other Interventions: Discharge Summary Assessment (RN) Last Done: 05/13/23 14:26 Coding Level of Care Code 93432 INP/OBS DISCH >30 MIN Diagnoses Weakness R53.1 COVID-19 U07.1 Adenovirus infection B34.0
== END 2023-05-13 19:40 | disposition home or self-care (01) | DRG 178 ==
LOC: ED 09:37 → SUATTDRO 22:23 → INTOOBSV 22:23 → EDINP 22:23

== ENCOUNTER 2024-03-31 19:18 | Observation (INO) ==
--- OUTSIDE RECORDS SUMMARY | 2024-03-31 19:23 | External Medical Summary | Summary of Care ---
Author Name Unknown Organization [facility] Address [address] [place] [address] Phone [phone] Care Team Providers Care Production Staff Worker Name Role Phone Megan Cutler MD Primary Care Provider [phone] Reason for Visit * Reason Comments Botox Injection * Precert (Within 10 days (routine)) - Authorized Specialty Diagnoses / Procedures Referred By Nella millard Referred To Contact Ophthalmology Diagnoses Blepharospasm Procedures VT INJECTION,ONABOTULINUMTOXINA VT INCOBOTULINUMTOXIN A Vinh Vazquez, [address] [facility] [place] [address] Vinh Vazquez DO [address] [facility] [address] Referral ID Status Reason Start Date Expiration Date V isits Requested Visits Authorized [id number] Authorized Precert 04/07/2023 04/05/2024 7 7 Encounter Details Date Type Department Care Team (Late st Contact Info) Description 10/31/2023 7:50 AM EDT Office Visit Ophthalmology, [facility] [address] [facility] [address] Vinh Vazquez DO [address] [place], [place] [id number] Blepharospasm* Allergies Active Allergy Reactions Criticality Noted Date Comments Azithromycin 10/01/2019 Food (See Comments) 11/17/2020 Other reaction(s): orange jellow-anaphylaxis Penicillins 09/14/2000 Sulfa Antibiotics 11/18/2014 Sulfamethoxazole-Trimethopri m 11/17/2020 Other reaction(s): rash rash rash documented as of this encounter (statuses as of 10/31/2023) Medications Medication Sig Dispensed Refills Start Date End Date Status cholecalciferol (VITAMIN D3) 400 UNIT TABS 0 Active gabapentin (NEURONTIN) 100 MG Capsule 0 10/04/2016 Active Triamcinolone Acetonide 0.1 % External Cream (Aristocort) Start: 01/14/21 10:21:00 EDT, 1 appl, topical, bid, Disp# 60 g, Refills: 2, apply to dermatitis on the leg until, Pharmacy: [id number] #[id number] 01/14/2021 Active Hospital, Clinic, or Other Facility Administered Medication Ordered Dose Route Frequency Start Date End Date Status incobotulinumtoxinA (Xeomin) inj 70 UnitsIndications:Blepharosp asm 70 Units IM ONCE 10/31/2023 10/31/2023 Active documented as of this encounter (statuses as of 10/31/2023) Active Problems Problem Noted Date Diagnosed Date 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 Caballero Deviated nasal septum 10/07/2005 Overview: Dr. Caballero Headache Overview: ICD-10 update of inactive term Anxiety state MERCEDES TOURETTE DISORDER documented as of this encounter (statuses as of 10/31/2023) Immunizations Name Administration Dates Next Due TDAP (age 11 and older)(Adacel) 11/14/2018 documented as of this encounter Social History Tobacco Use Types Packs/Day Years Used Date Smoking Tobacco: Never Smokeless Tobacco: Never Alcohol Use Standard Drinks/Week Comments Yes 0 (1 standard drink = 0.6 oz pur e alcohol) 2 drinks a month Sex and Gender Information Value Date Recorded Sex Assigned at Not on file Gender Identity Female 10/30/2023 10:47 AM EDT Sexual Orientation Not on file Job Start Date Occupation Industry Not on file Not on file Not on file documented as of this encounter Progress Notes * Vinh Vazquez DO - 10/31/2023 8:34 AM EDT Lis Candelario is a 68 year old female who presents for Xeomin injections. Pt with history of BEBand agrees to injections. Reports good response in the past but requires every 2 months. Good response but reported wearing off sooner. Family stressors reported. EXAM: See annotated facial image IMPRESSION: 1. Blepharospasms PLAN: 1. XEOMIN today Type: XEOMIN 5 units per 0.1ml Right eye central frontalis-2.5 units Procerus - 2.5units Energy Management Specialist Muscle/ medial orbicularis: 5 units Orbicularis Oculi Orbital laterally 5 units upper eyelid: Medial - none Lateral - 10 units over 2 sites Lower eyelid Medial - 2.5 units Lateral - 5 units Central procerus 2.5 units Left eye Central Frontalis - 2.5 units Procerus- 2.5 units Energy Management Specialist Muscle/medial orbicularis: 5 units Orbicularis Oculi Orbital laterally 5 units and 2.5 units central upper eyelid: Medial - Lateral - 10 units over 2 sites Lower eyelid Medial -2.5 units Lateral -5 units Total Given- 70 units Wasted- 30 units Tolerated well No complications 2. 2 month return Vinh Vazquez DO documented in this encounter Nursing Notes * Eli Guillen LPN - 10/31/2023 7:39 AM EDT Lis Candelario is a 68 year old female who presents for 2 months Botox injections. 70 units used last visit for blepharospasm. Ms. Candelario currently states pleased with past results. documented in this encounter Plan of Treatment Upcoming Encounters Date Type Department Care Team (Late st Contact Info) Description 12/19/2023 7:50 AM EDT Office Visit Ophthalmology, [address] [place] [address] Vinh Vazquez, DO [address] [place] [address] Health Maintenance Due Date Last Done Comments DXA Scan 1954 Lipid Panel 1954 Depression Screening 1966 Hepatitis C Screening 1972 Mammogram 1994 Cologuard 1999 Colonoscopy 1999 Colorectal Cancer Screening 1999 Fecal Occult Blood Test 1999 Sigmoidoscopy 1999 Zoster Vaccines (1 of 2) 2004 Pneumococcal Vaccine: 65+ Ye ars (1 of 1 - PCV) 2019 COVID-19 Vaccine (1 - 2022-2 4 season) 2023 Influenza Vaccine (FLU shot) (Season Ended) 2024 DTaP,Tdap,and Td Vaccines (2 - Td or Tdap) 11/14/2028 11/14/2018 GARDASIL-HPV IMMUNIZATION SERIES Aged Out No longer eligible based on patient's age to complete this topic Hepatitis B Aged Out No longer eligi ble based on patient's age to complete this topic MENINGOCOCCAL (MENACTRA/MENVEO) Aged Out No longer eligible based on patient's age to complete this topic documented as of this encounter Medical Devices Not on filedocumented as of this encounter Visit Diagnoses Diagnosis Blepharospasm- Primary documented in this encounter Care Teams Production Staff Worker Relationship Specialty Start Date End Date Megan Cutler MD [address] [place] [id number] PCP - General Family Medicine 08/11/16 documented as of this encounter
--- OUTSIDE RECORDS SUMMARY | 2024-03-31 19:23 | External Medical Summary | Summary of Care ---
Author Name Unknown Organization [facility] Address [address] [facility] [address] Phone [phone] Care Team Providers Care Editing Internship Name Role Phone Megan Cutler MD Primary Care Provider [phone] Reason for Visit * Reason Comments Follow Up * Precert (Within 10 days (routine)) - Authorized Specialty Diagnoses / Procedures Referred By Nella millard Referred To Contact Ophthalmology Diagnoses Blepharospasm Procedures VT INJECTION,ONABOTULINUMTOXINA VT INCOBOTULINUMTOXIN A Vinh Vazquez DO [address] [facility] [place] [address] Vinh Vazquez DO [address] [facility] [place] [address] Referral ID Status Reason Start Date Expiration Date V isits Requested Visits Authorized [id number] Authorized Precert 04/07/2023 04/05/2024 7 7 Encounter Details Date Type Department Care Team (Late st Contact Info) Description 12/19/2023 7:50 AM EDT Office Visit Ophthalmology, [facility] [address] [place] [address] Vinh Vazquez DO [address] [place], [place] [phone] Blepharospasm* Allergies Active Allergy Reactions Criticality Noted Date Comments Azithromycin 10/01/2019 Food (See Comments) 11/17/2020 Other reaction(s): orange jellow-anaphylaxis Penicillins 09/14/2000 Sulfa Antibiotics 11/18/2014 Sulfamethoxazole-Trimethopri m 11/17/2020 Other reaction(s): rash rash rash documented as of this encounter (statuses as of 12/19/2023) Medications Medication Sig Dispensed Refills Start Date End Date Status cholecalciferol (VITAMIN D3) 400 UNIT TABS Active gabapentin (NEURONTIN) 100 MG Capsule 10/04/2016 Active Triamcinolone Acetonide 0.1 % External Cream (Aristocort) Start: 01/14/21 10:21:00 EDT, 1 appl, topical, bid, Disp# 60 g, Refills: 2, apply to dermatitis on the leg until, Pharmacy: [id number] 01/14/2021 Active documented as of this encounter (statuses as of 12/19/2023) Active Problems Problem Noted Date Diagnosed Date 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 Caballero Deviated nasal septum 10/07/2005 Overview: Dr. Caballero Headache Overview: ICD-10 update of inactive term Anxiety state MERCEDES TOURETTE DISORDER documented as of this encounter (statuses as of 12/19/2023) Immunizations Name Administration Dates Next Due TDAP [...] Progress Notes * Vinh Vazquez DO - 12/19/2023 7:36 AM EDT Pt presented for Xeomin but only 7 weeks since last injection too soon Resecheduled to Next Tuesday at 8 am Vinh Vazquez DO 12/19/2023 7:36 AM documented in this encounter Plan of Treatment Health Maintenance Due Date Last Done Comments [...] Primary documented in this encounter Care Teams Editing Internship Relationship Specialty Start Date End Date Megan Cutler MD [address] [place] [id number] PCP - General Family Medicine 08/11/16 documented as of this encounter
--- OUTSIDE RECORDS SUMMARY | 2024-03-31 19:23 | External Medical Summary | Continuity of Care Document ---
Author Name Unknown Organization [place] [id number] [facility] Address [address], [place] [id number] Care Team Providers Care Store Coordinator Name Role Phone Megan Cutler Primary Care Physician [phone] [id number] Date(s): 12/07/23 - 12/07/23 [facility] [address], [address] [place] [address] [phone] Encounter Diagnosis Annual physical exam(Discharge Diagnosis) - 12/06/23 Asthma(Discharge Diagnosis) - 12/06/23 Fatigue(Discharge Diagnosis) - 12/06/23 Fatty liver disease, nonalcoholic(Discharge Diagnosis) - 12/06/23 Glucose intolerance (impaired glucose tolerance)(Discharge Diagnosis) - 12/06/23 Hyperlipidemia(Discharge Diagnosis) - 12/06/23 Body mass index [BMI] 29.0-29.9, adult(Discharge Diagnosis) - 12/07/23 Acute blepharitis(Discharge Diagnosis) - 12/07/23 Blepharitis of both eyes(Discharge Diagnosis) - 12/07/23 Discharge Disposition: Home or Self Care Attending Physician: MD Cutler Amy L Allergies, Adverse Reactions, Alerts Substance Reaction Severity Status azithromycin eyes swelling Active Bactrim DS 1 rash Active Allergy Not found in Search orange jellow-anaphylaxis Active PCN (penicillin) Anaphylaxis difficulty breathing syncope Active 1rash Assessment and Plan Extracted from: Title:Office Visit Note Author:MD Cutler Amy L D ate:12/07/23 1.Annual physical exam Normal exam, healthy lifestyle. Get CMP & lipids. Up to date for breast cancer screening, she declines colon cancer screening &shingles/pneumonia vaccines. Return in 1 yr. 2.Blepharitis of both eyes STATUS: acute, worse. DATA: hx & exam reviewed. GOAL: resolve skin rash. PLAN: discussed possible precipitants of this. She realizes that oral prednisone is not the usual tx for this. However, since she is not having any response to current topical steroid, will send in 5 days of Pred 10mg BID. 3.Asthma STATUS: Chronic, improved. DATA: hx & examreviewed. . GOAL: control allergic sx.Maintain respiratory stability. PLAN: she has not needed her rescue inhaler for some time. 4.Glucose intolerance (impaired glucose tolerance) Status : chronic, controlled. Data : dietreviewed. Goal : maintain normal blood sugars. Plan : [id number]. Discussed"pre-diabetes", as well as need to limit dietary carbs & continue to work on weight loss. 5.Fatigue STATUS : chronic, improved. DATA : hx & exam reviewed. GOAL : restore energy. PLAN : hadlabs, including CBC & TSH in 07/23, so these were not repeated. 6.Fatty liver disease, nonalcoholic STATUS: Chronic, stable. DATA: Labs reviewed. GOAL: Maintain hepatic stability. PLAN: recheckLFT's. Keep up good work with diet & weight loss. 7.Hyperlipidemia STATUS : chronic, stable. DATA : diet & exercise reviewed. GOAL: improve metabolic profile. PLAN : continue to monitor lifestyle. Get lipids & LFTs. Return in 1 yr, if labs all normal. Immunizations Given and Recorded Vaccine Date Status Refusal Reason tetanus/diphtheria/pertuss, acel (Tdap) 11/14/18 G iven Medications albuterol CFC free 90 mcg/inh MDI Start: 06/16/18 15:10:00 EST, 1 puff, inhaled, qid, Disp# 1 each, PRN: as needed for wheezing, [facility]acy: [facility] [place] [address] Start Date: 06/16/18 Status: Ordered fluticasone 50 mcg/inh nasal spray Start: 05/19/23 11:08:00 EDT, 1 spray, each nostril, bid, Disp# 16 g, Pharmacy: [facility]/pharmacy #[id number] Start Date: 05/19/23 Status: Ordered gabapentin 100 mg oral capsule Start: 07/29/23 9:03:00 EST, 2 cap, PO, bid, Disp# 360 cap, Refills: 3, Pharmacy: [facility] Start Date: 07/29/23 Stop Date: 07/23/24 Status: Ordered LORazepam 0.5 mg oral tablet Start: 07/29/23 11:01:00 EST, 1 tab, PO, tid, Disp# 90 tab, Refills: 0, PRN: as needed for anxiety,Pharmacy: [facility][id number] Start Date: 07/29/23 Status: Ordered predniSONE 10 mg oral tablet Start: 12/07/23 16:21:00 EDT, 1 tab, PO, bid, Disp# 10 tab, Refills: 0, [id number] Start Date: 12/07/23 Stop Date: 12/12/23 Status: Ordered Mental Status 12/07/23 Barriers to Learning one year None evide nt Mandatory Health Literacy Documentation Yes Health Literacy Communication Barriers N ever Primary Language Nepalese Problem List Condition Confirmation Course Effective Dates Status H ealth Status Informant Acute asthma exacerbation Confirmed Active Acute blepharitis Confirmed Active Acute asthma exacerbation Confirmed Active Acute asthma exacerbation Confirmed Active Acute asthma exacerbation Confirmed Active Allergic rhinitis Confirmed Active Alopecia Confirmed Active Anxiety Confirmed Active Asthma Confirmed Active Blepharitis of both eyes Confirmed Active BLEPHAROSPASM Confirmed Active Cyst, Hurt's knee Confirmed Active ESOPHAGEAL REFLUX Confirmed Active Fatigue Confirmed Active Fatigue Confirmed Active Fever Confirmed Active GERD (gastroesophageal reflux disease) Confirmed Active IVORY (generalized anxiety disorder) Confirmed Active Hiatal hernia Confirmed Active Hyperglycemia Confirmed Active Hyperlipidemia Confirmed Active Glucose intolerance (impaired glucose tolerance) Confirmed Active Urinary frequency Confirmed Active Insomnia Confirmed Active Arthralgia Confirmed Active Chronic joint pain Confirmed Active Nephrolithiasis Confirmed Active Hepatomegaly Confirmed Active Hair loss Confirmed Active Memory loss Confirmed Active Microscopic hematuria Confirmed Active Near syncope Confirmed Active Neuralgia Confirmed Active Fatty liver disease, nonalcoholic Confirmed Active Mild obesity Confirmed Active Osteopenia Confirmed Active Overweight Confirmed Active Overweight Confirmed Active Annual physical exam Confirmed Active PTSD (post-traumatic stress disorder) Confirmed Active Acute recurrent sinusitis Confirmed Active Night terrors, adult Confirmed Active Snores Confirmed Active Solitary Pulmonary Nodule Confirmed Active Stress Confirmed Active UI (urinary incontinence) Confirmed Active Vitamin D deficiency Confirmed Active Weakness Confirmed Active White blood cell disorder Confirmed Active Diagnosis Diagnosis Type Effective Dates Health Status Clinical Service Informant Fatigue Discharge Diagnosis 12/06/23 Annual physical exam Discharge Diagnosis 12/06/23 Asthma Discharge Diagnosis 12/06/23 Fatty liver disease, nonalcoholic Discharge Diagnosis 12/06/23 Glucose intolerance (impaired glucose tolerance) Discharge Diagnosis 12/06/23 Hyperlipidemia Discharge Diagnosis 12/06/23 Body mass index [BMI] 29.0-29.9, adult Discharge Diagnosis 12/07/23 Non-Specified Acute blepharitis Discharge Diagnosis 12/07/23 Non-Specified Blepharitis of both eyes Discharge Diagnosis 12/07/23 Procedures Procedure Date Related Diagnosis Body Site Status Mammogram - screening 1 01/07/23 C ompleted Mammogram 2 01/05/22 Completed Mammogram 3 01/02/21 Completed Mammogram 4 01/02/20 Completed Chest x-ray 5 05/10/19 Completed Mammogram 6 10/27/18 Completed Mammogram 7 10/17/17 Completed CXR - Chest X-ray 8 06/17/17 Compl eted VQ scan normal 9 06/17/17 Complete d Mammogram 10 04/21/17 Completed Mammogram 11, 12 10/21/16 Complete d Mammogram - screening 13, 14 10/13/16 Completed Eye surgery 09/29/16 Completed Arthroscopy of knee 15 02/17/16 Co mpleted Date of last PAP test 16 01/05/[address] 17 01/02/16 Completed Doppler 18 01/02/16 Completed CXR - Chest X-ray 19 12/09/15 Comp leted X-ray of left knee 20 06/17/15 Com pleted Chest x-ray 21 05/01/15 Completed Mammogram - screening 22 10/08/14 Completed MRI of brain 23 10/04/14 Completed right kathleen and ankle surgery 12/06/12 Completed cataract surgery 07/27/11 Complete d dilation and curettage Co mpleted history of wrist surger C ompleted hysteroscopy Completed sinus Completed tonsillectomy Completed 1IMPRESSION: ACR BI-RADS CATEGORY 2: BENIGN There is no mammographic edvidence of malignancy. A 1 year screening mammogram is recommended. (01/08/2024) The patient will receive written notification of the results. 2No mammographic evidence of malignancy. 1 year screening mammogram is recommended. 31. There is no mammographic evidence of malignancy. 1 year screening mammogram is recommended. 2. Also recommend clinical follow up for elft breast pain reported by the patient. If the findings are clinically concerning, a targeted ultrasound could be performed for further evaluation. 4No mammographic evidence of malignancy. 1 year screening mammogram is recommended. 5[facility] Impresion: 1. No active disease in the chest 6No mammographic evidence of malignancy. 1 year screening mammogram is recommended. 7There is no mammographic evidence of malignancy. 1 year screening mammogram is recommended. 81. No acute cardiopulmonary process. 2. Partially imaged lesion of the proximal left humerus suggests an endochondroma. 9Normal. 10The right breast asymmetry is no longer evident, and is benign and compatible with normal fibroglandular tissue. There is no mammographic evidence of malignancy in the right breast. return to annual mammogram screening schedule is recommended, due September 2017. 11Partial effacement of the right superior breast asymmetry, with no suspicious sonographic correlateevident and no architectural distortion seen on the additional views. The asymmetry is probably benign and likely represents normal overlapping fibroglandular tissue. Recommend follow up diagnostic tomosynthesis mammograms and possible ultrasound of the right breast in 6 months to confirm stability. 12Unilat. R diagnostic mammo - BIRADS 3 13[facility] Impression: ACR BI-RADS CATEGORY 1: NEGATIVE 1. There is no mammographic evidence of malignancy. A 1 year screening mammogram is recommended. 14right breast asymmetry, for which additional imaging evaluation is recommended. 15post. horn radial tear of left medial meniscus; Grade 4 articular damage to lateral facet of patella 16Negative for intraepithelial lesion or malignancy. 17No evidence of pulmonary embolus. 18No evidence of lower extemity DVT. 19Mild cardiac enlargement with no acute cardiopulmonary abnormality. 201. Mild arthritic change. 2. Meniscal degeneration along with a radial tear involving the body of the medial meniscus. 3. Nonaggressive bone lesion within the distal femur posteriorly. 21Nonspecific chronic interstitial thickening. No acute disease. 22No mammographic evidence of malignancy. 1 year screening recommended. 231. No acute intracranial findings. 2. Mild small vessel ischemic disease. 3. No significant change in appearance of the brain. Vital Signs Most recent to oldest [Reference Range]: 1 Height 162 cm (12/07/23 3:56 PM) Patient Weight 76.3 kg (12/07/23 3:56 PM) Body Mass Index 29.07 kg/m2 (12/07/23 3:56 PM) Respiratory Rate 18 br/min (12/07/23 3:56 PM) Blood Pressure 124/88mmHg (12/07/23 3:56 PM) Social History Social History Type Response Smoking Status Never smoked cigaret bandar Sex Female FCM Outpt Note * MD He, Megan Castillo: PERFORM Event Display: FCM Outpt Note Authored Date: Chief Complaint CPE. Itch around eyes, redness. History of Present Illness * This patient is being followed longitudinally for chronic serious medical problems by Dr. Megan Cutler. Their most recent visitwith Dr. Cutler:07/29/23 CPE: Here for a health maintenance complete physical exam and lab review SEPARATE PROBLEMS IN ADDITION TO HEALTH MAINTENANCE: Also presents to address NEW or CHRONIC medical issues. NEW CONCERNS(s): Eyelid irritation - she had tried a new body wash & new shampoo. Now her eyelids are red & swollen. She's been using the hydrocortisone cream recommended by her eye doctor, but it has nothelped. She is "begging" for 5 days of prednisone, as this has worked well for her in past. CHRONIC PROBLEMS FOLLOW UP: See list detailed in the Assessment and Plan. CC: No acute complaints at this time. HOSPITALIZATIONS: + hospitalizations in 05/23 for COVID & weakness, no severe acute injuries not accounted for in chart. DENTAL: no routine dental care EYE: Routine eye care yearly, without issue presently, except as above PSFSHx: Histories updated and reviewed with patient with changes reflected. SAFETY: Feeling safe at home and in relationships without concern. MAMMOGRAM: last one01/21, reviewed with pt. Has one scheduled for 01/22. COLONOSCOPY: Reviewed last COLO never and need for next COLO: now IMMUNIZATIONS: Reviewed in EHR. Immunizations that are due: shingles, pneumococcal ?? Review of Systems Review of Systems- Constitutional: no fatigue or changes in weight. HEENT: no vision changes, or sinus congestion. Respiratory: no cough, SOB, or wheezing. Cardiac: no chest pain, palpitations or pedal edema. GI: no abdominal pain, vomiting or change in bowel habits. : no dysuria. Neurologic: no headaches. Musculoskeletal: No joint pains. Physical Exam Vitals & Measurements RR:18 BP:124/88 SpO2:96% HT:162cm WT:76.300kg(Dosing) WT:76.3kg BMI:29.07 PE : Alert, in NAD. HEENT - PERRL. Upper & lower eyelids with diffuse mild erythema, swelling & lichenification. TM's - normal. Nares - clear. Oropharynx - normal. Neck - supple, without thyromegaly or lymphadenopathy. Lungs - clear, with good breath sounds bilaterally. Heart - RRR without murmur. No pedal edema. Abdomen - +BS, soft, NT without HSM or mass. Neuro - alert & oriented, speech & cognition normal. Skin - warm & dry. Psych - affect appropriate. Assessment/Plan 1.Annual physical exam Normal exam, healthy lifestyle. Get CMP & lipids. Up to date for breast cancer screening, she declines colon cancer screening &shingles/pneumonia vaccines. Return in 1 yr. 2.Blepharitis of both eyes STATUS: acute, worse. DATA: hx & exam reviewed. GOAL: resolve skin rash. PLAN: discussed possible precipitants of this. She realizes that oral prednisone is not the usualtx for this. However, since she is not having any response to current topical steroid, will send in 5 days of Pred 10mg BID. 3.Asthma STATUS: Chronic, improved. DATA: hx & examreviewed. . GOAL: control allergic sx.Maintain respiratory stability. PLAN: she has not needed her rescue inhaler for some time. 4.Glucose intolerance (impaired glucose tolerance) Status : chronic, controlled. Data : dietreviewed. Goal : maintain normal blood sugars. Plan : [id number]. Discussed"pre-diabetes", as well as need to limit dietary carbs & continue to work on weight loss. 5.Fatigue STATUS : chronic, improved. DATA : hx & exam reviewed. GOAL : restore energy. PLAN : hadlabs, including CBC & TSH in 07/23, so these were not repeated. 6.Fatty liver disease, nonalcoholic STATUS: Chronic, stable. DATA: Labs reviewed. GOAL: Maintain hepatic stability. PLAN: recheckLFT's. Keep up good work with diet & weight loss. 7.Hyperlipidemia STATUS : chronic, stable. DATA : diet & exercise reviewed. GOAL: improve metabolic profile. PLAN : continue to monitor lifestyle. Get lipids & LFTs. Return in 1 yr, if labs all normal. Problem List/Past Medical History Ongoing Acute asthma exacerbation Acute asthma exacerbation Acute asthma exacerbation Acute asthma exacerbation Acute blepharitis Acute recurrent sinusitis Allergic rhinitis Alopecia Annual physical exam Anxiety Arthralgia Asthma Blepharitis of both eyes BLEPHAROSPASM Chronic joint pain Cyst, Hurt's knee ESOPHAGEAL REFLUX Fatigue Fatigue Fatty liver disease, nonalcoholic Fever IVORY (generalized anxiety disorder) GERD (gastroesophageal reflux disease) Glucose intolerance (impaired glucose tolerance) Hair loss Hepatomegaly Hiatal hernia Hyperglycemia Hyperlipidemia Insomnia Memory loss Microscopic hematuria Mild obesity Near syncope Nephrolithiasis Neuralgia Night terrors, adult Osteopenia Overweight Overweight PTSD (post-traumatic stress disorder) Snores Solitary Pulmonary Nodule Stress UI (urinary incontinence) Urinary frequency Vitamin D deficiency Weakness White blood cell disorder Historical Abdominal pain, acute, right upper quadrant Acute allergic rhinitis Acute asthma Acute asthma exacerbation Acute bronchitis Acute sinusitis Acute upper respiratory infection Acute weakness Altered mental state Ankle fracture, right Asthma exacerbation Atypical syncope Bacterial lobar pneumonia BV (bacterial vaginosis) Change in vision Chest pain Chest pain, pleuritic CONFUSION Dermatitis herpetiformis Dizzinesses Dyspnea Early satiety Fatigue Fatigue Fatty liver Fever Fibroid Hematuria Influenza Medial epicondylitis Paresthesia of arm SINUSITIS Weight disorder Procedure/Surgical History Mammogram - screening| Service Date: 01/07/2023Mammogram| Service Date: 01/05/2022Mammogram| Service Date: 01/02/2021Mammogram| Service Date: 01/02/2020Chest x-ray| Service Date: 05/10/2019Mammogram| Service Date: 10/27/2018Mammogram| Service Date: 10/17/2017VQ scan normal| Service Date: 06/17/2017CXR - Chest X-ray| Service Date: 06/17/2017Mammogram| Service Date: 04/21/2017Mammogram| Service Date: 10/21/2016Mammogram - screening| Service Date: 10/13/2016Eye surgery| Service Date: 09/29/2016Arthroscopy of knee| Service Date: 02/17/2016Date of last PAP test| Service Date: 01/05/2016Chest CT| Service Date: 01/02/2016Doppler| Service Date: 09/2015CXR - Chest X-ray| Service Date: 12/09/2015X-ray of left knee| Service Date: 06/17/2015Chest x-ray| Service Date: 05/01/2015Mammogram - screening| Service Date: 10/08/2014MRI of brain| Service Date: 10/04/2014right kathleen and ankle surgery| Service Date: 12/06/2012cataract s urgery| Service Date: 07/27/2011hysteroscopydilation and curettagetonsillectomyhistory of wrist surgersinus Medications albuterol(albuterol CFC free 90 mcg/inh MDI), 1 puff, inhaled, qid, PRN fluticasone nasal(fluticasone 50 mcg/inh nasal spray), 1 spray, each nostril, bid gabapentin(gabapentin 100 mg oral capsule), 200 mg= 2 cap, PO, bid, 3 refills LORazepam(LORazepam 0.5 mg oral tablet), 0.5 mg= 1 tab, PO, tid, PRN predniSONE(predniSONE 10 mg oral tablet), 10 mg= 1 tab, PO, bid Allergies Allergy Not found in Searchorange jellow-anaphylaxis Bactrim DSrash PCN (penicillin)Anaphylaxis, difficulty breathing, syncope azithromycineyes swelling Social History Smoking Status Never smoked cigarettes Alcohol - No Risk Use:Current Type:Liquor Frequency:1-2 times per month Average drinks per episode in last year:2 Employment/School Status:Employed Description:[employer] at [employer] Tobacco - Denies Tobacco Use Family History High Blood Pressure: Mother. Lung cancer..: Mother. Prostate cancer..: Father. TIA: Mother. Health Status Family Member(s) Immunizations Vaccine Date Status tetanus/diphtheria/pertuss, acel (Tdap) 11/14/2018 Given Recommendations Health Maintenance Pending(in the next year) OverDue Adult Influenza Vaccine due01/28/23and every 1year Due Adult COVID-19 Vaccination due12/07/23Unknown Frequency Adult Social Determinants of Health Screening due12/07/23Unknown Frequency Medicare Annual Wellness Visit due12/07/23and every 1year Osteoporosis Screening due12/07/23One-time only Pneumococcal Vaccine Older Adults due12/07/23One-time only Shingles Vaccine due12/07/23One-time only Satisfied(in the past 1 year) Satisfied Body Mass Index on12/07/23.Satisfied by MARIA R Levine Hannah Refused Colorectal Cancer Screening on02/17/23.Recorded by YOVANA Carver LynnaeReason: Patient Refuses Electronic Signature on File Electronically Reviewed/Signed by: Megan Cutler MD Author Signature Dt/Tm:12/07/2023 05:05 PM [employer] [address] [facility], [address] [place], [place]. [address] [facility] Patient Care team information Care Team Personnel Name: MD Cutler Amy L Position: Physician - Family Med Member Role: Primary Care Provider Address: Address: [address] [place] [address], [place] [address] Care Team Related Persons Name: DAYDAY ESPINO Address: home [address] [place] [phone]
--- OUTSIDE RECORDS SUMMARY | 2024-03-31 19:23 | External Medical Summary | Summary of Care ---
Author Name Unknown Organization [facility] Address [address] [place] [address] Phone [phone] Care Team Providers Care Real Estate Intern Name Role Phone Megan Cutler MD Primary Care Provider [phone] Reason for Visit * Reason Comments Botox Injection * Precert (Within 10 days (routine)) - Authorized Specialty Diagnoses / Procedures Referred By Nella millard Referred To Contact Ophthalmology Diagnoses Blepharospasm Procedures NE INJECTION,ONABOTULINUMTOXINA NE INCOBOTULINUMTOXIN A Vinh Vazquez DO [address] [facility] [place] [address] Vinh Vazquez DO [facility] [address] Referral ID Status Reason Start Date Expiration Date V isits Requested Visits Authorized [id number] Authorized Precert 04/07/2023 04/05/2024 7 7 Encounter Details Date Type Department Care Team (Late st Contact Info) Description 02/27/2024 7:50 AM EDT Office Visit Ophthalmology, [facility] [address] [place] [address] Vinh Vazquez DO [address] [place], [place] [id number] Blepharospasm* Allergies Active Allergy Reactions Criticality Noted Date Comments Azithromycin 10/01/2019 Food (See Comments) 11/17/2020 Other reaction(s): orange jellow-anaphylaxis Penicillins 09/14/2000 Sulfa Antibiotics 11/18/2014 Sulfamethoxazole-Trimethopri m 11/17/2020 Other reaction(s): rash rash rash documented as of this encounter (statuses as of 02/27/2024) Medications Medication Sig Dispensed Refills Start Date End Date Status cholecalciferol (VITAMIN D3) 400 UNIT TABS Active gabapentin (NEURONTIN) 100 MG Capsule 10/04/2016 Active Triamcinolone Acetonide 0.1 % External Cream (Aristocort) Start: 01/14/21 10:21:00 EDT, 1 appl, topical, bid, Disp# 60 g, Refills: 2, apply to dermatitis on the leg until, Pharmacy: [facility]/pharmacy #[id number] 01/14/2021 Active Hospital, Clinic, or Other Facility Administered Medication Ordered Dose Route Frequency Start Date End Date Status incobotulinumtoxinA (Xeomin) inj 70 UnitsIndications:Blepharosp asm 70 Units IM ONCE 02/27/2024 02/27/2024 Ended documented as of this encounter (statuses as of 02/27/2024) Active Problems Problem Noted Date Diagnosed Date 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 Caballero Deviated nasal septum 10/07/2005 Overview: Dr. Caballero Headache Overview: ICD-10 update of inactive term Anxiety state MERCEDES TOURETTE DISORDER documented as of this encounter (statuses as of 02/27/2024) Immunizations Name Administration Dates Next Due TDAP, Age 7 and older, IM (Adacel) 11/14/2018 documented as of this encounter Social History Tobacco Use Types Packs/Day Years Used Date Smoking Tobacco: Never Smokeless Tobacco: Never Alcohol Use Standard Drinks/Week Comments Yes 0 (1 standard drink = 0.6 oz pur e alcohol) 2 drinks a month Utilities Answer Date Recorded Do you have trouble paying y our heating, water, or electric bill? (Adult - for ages 18 years and over) Not on file 01/17/2024 Is your family able to pay t he heat, water, or electric bill? (Household - for ages 0-17 years) Not on file 01/17/2024 Does your family have access to good internet? (Household - for ages 0-17 years) Not on file 01/17/2024 Social Connections Answer Date Recorded How often do you feel lonely or isolated from those around you? (Adult - for ages 18 years and over) Not on file 01/17/2024 Sex and Gender Information Value Date Recorded Sex Assigned at Not on file Gender Identity Female 10/30/2023 10:47 AM EDT Sexual Orientation Not on file Job Start Date Occupation Industry Not on file Not on file Not on file documented as of this encounter Progress Notes * Vinh Vazquez DO - 02/27/2024 7:47 AM EDT Lis Garcia [employer] is a 68 year old female who returns today for Xeomin injections. Pt with history of BEB and agrees to injections. Reports good response in the past but requires every 2 months. Goodresponse. EXAM: See annotated facial image IMPRESSION: 1. Blepharospasms PLAN: 1. XEOMIN today Type: XEOMIN 5 units per 0.1ml Right eye central frontalis-2.5 units Procerus - 2.5units [place] Muscle/ medial orbicularis: 5 units Orbicularis Oculi Orbital laterally 5 units upper eyelid: Medial - none Lateral - 10 units over 2 sites Lower eyelid Medial - 2.5 units Lateral - 5 units Central procerus 2.5 units Left eye Central Frontalis - 2.5 units Procerus- 2.5 units [place] Muscle/medial orbicularis: 5 units Orbicularis Oculi Orbital laterally 5 units and 2.5 units central upper eyelid: Medial - Lateral - 10 units over 2 sites Lower eyelid Medial -2.5 units Lateral -5 units Total Given- 70 units Wasted- 30 units Tolerated well No complications 2. 2 month return Vinh Vazquez DO documented in this encounter Nursing Notes * Eli Guillen LPN - 02/27/2024 7:41 AM EDT Lis Candelario is a 68 year old female who presents for 2 months Botox injections. 70 units used last visit for blepharospasm. Ms. Candelario currently states pleased with past results. documented in this encounter Plan of Treatment Scheduled Orders Name Type Priority Associated Diagnoses Orde r Schedule DESTRUCTION OF FACE MUSCLE NERVE Procedures Routine Blepharospasm Ordered: 02/27/2024 Health Maintenance Due Date Last Done Comments [...] 4 season) 2023 Influenza Vaccine (FLU shot) (#1) 2024 DTaP,Tdap,and Td Vaccines (2 - Td or Tdap) 11/14/2028 11/14/2018 HPV (Gardasil) Vaccine Aged Out No lo nger eligible based on patient's age to complete this topic Hepatitis B Vaccine Aged Out No longe r eligible based on patient's age to complete this topic MENINGOCOCCAL (MENACTRA/MENVEO) Aged Out No longer eligible based on patient's age to complete this topic documented as of this encounter Medical Devices Not on filedocumented as of this encounter Visit Diagnoses Diagnosis Blepharospasm- Primary documented in this encounter Administered Medications Inactive Administered Medications - up to 3 most recent administrations Medication Order MAR Action Action Date Dose Rate Site incobotulinumtoxinA (Xeomin) inj 70 Units 70 Units, Intramuscular, ONCE, On 02/27/24 at 0830, For 1 dose Given 02/27/2024 8:09 AM EDT 70 Units Other-Specify documented in this encounter Care Teams Real Estate Intern Relationship Specialty Start Date End Date Megan Cutler MD [facility] [address] [place] [address] PCP - General Family Medicine 08/11/16 documented as of this encounter
--- OUTSIDE RECORDS SUMMARY | 2024-03-31 19:23 | External Medical Summary | Continuity of Care Document ---
Author Name Unknown Organization [address] Address [address] [place], [place] [id number] Care Team Providers Care Mill Feeder Name Role Phone Megan Cutler Primary Care Physician [phone] [id number] Date(s): 02/21/24 - 02/21/24 [facility] [address], [address] [place] [address] [phone] Encounter Diagnosis LOM (loss of memory)(Discharge Diagnosis) - 02/21/24 Chronic fatigue(Discharge Diagnosis) - 02/21/24 Anxiety(Discharge Diagnosis) - 02/21/24 Other amnesia(Final) - Chronic fatigue, unspecified(Final) - Unspecified symptoms and signs involving cognitive functions and awareness (Final) - Fatty (change of) liver, not elsewhere classified(Final) - Impaired glucose tolerance (oral)(Final) - Other fatigue(Final) - Discharge Disposition: Home or Self Care Attending Physician: MD He, Megan Castillo Allergies, Adverse Reactions, Alerts Substance Criticality Severity Reaction Reaction Severity Status azithromycin eyes swelling Act cheyenne Bactrim DS 1 rash Active Allergy Not found in Search orange jellow-anaphylaxis Active PCN (penicillin) Anaphylaxis difficulty breathing syncope Active 1rash Assessment and Plan Extracted from: Title:Office Visit Note Author:MD He, Megan Castillo D ate:02/21/24 1.LOM (loss of memory) STATUS: newcomplaint,worse. DATA: hx & MMSEreviewed. GOAL: eval&txcause ofcognitiveissues. PLAN: her MMSE comes out lita , whichcouldindicatesignificantproblem.However,in talkingwith her,wediscussedthe possiblerole of anxiety indrivingthis.Willget extensivelabs, toincludeTFT's & Vitamin B12 level.Referto neuro.Cont current monitoring. 2.Chronic fatigue STATUS : chronic, worse. DATA : hx reviewed. GOAL : restore energy. PLAN : get extensive labs, includingCBC, TFT's,BS, etc.Discussedroleofanxiety inthis, as well. 3.Anxiety STATUS: Chronic, worse. DATA: hx reviewed. GOAL: control anxiety, to improve functioning PLAN: discussed options.[id number] daily, ROSY.Returnin2 months for recheck, callsooner ifproblems.Cont current monitoring. Return in 2-3 months. Time:Total time spent with this patient on day of evaluation including chart review, ordering, education and coordination of care elements: _38 minutes Immunizations Given and Recorded Vaccine Date Status Refusal Reason tetanus/diphtheria/pertuss, acel (Tdap) 11/14/18 G iven Medications albuterol CFC free 90 mcg/inh MDI Start: 06/16/18 3:10:00 PM EST, 1 puff, inhaled, qid, Disp# 1 each, PRN: as needed for wheezing, Pharmacy: [facility] Start Date: 06/16/18 Status: Ordered escitalopram 10 mg oral tablet Start: 02/21/24 11:51:00 AM EDT, 1 tab, PO, Daily, Disp# 30 tab, Refills: 3 Start Date: 02/21/24 Status: Ordered fluticasone 50 mcg/inh nasal spray Start: 05/19/23 11:08:00 AM EDT, 1 spray, each nostril, bid, Disp# 16 g, Pharmacy: [facility]/pharmacy #[id number] Start Date: 05/19/23 Status: Ordered gabapentin 100 mg oral capsule Start: 07/29/23 9:03:00 AM EST, 2 cap, PO, bid, Disp# 360 cap, Refills: 3, Pharmacy: [facility] Start Date: 07/29/23 Stop Date: 07/23/24 Status: Ordered Mental Status 02/21/24 Barriers to Learning one year None evide nt Mandatory Health Literacy Documentation Yes Health Literacy Communication Barriers N ever Primary Language Burmese Problem List Condition Confirmation Course Effective Dates Status H ealth Status Informant Acute asthma exacerbation Confirmed Active Acute blepharitis Confirmed Active Acute asthma exacerbation Confirmed Active Acute asthma exacerbation Confirmed Active Acute asthma exacerbation Confirmed Active Allergic rhinitis Confirmed Active Alopecia Confirmed Active LOM (loss of memory) Confirmed Active Anxiety Confirmed Active Asthma Confirmed Active Blepharitis of both eyes Confirmed Active BLEPHAROSPASM Confirmed Active Cyst, Hurt's knee Confirmed Active ESOPHAGEAL REFLUX Confirmed Active Fatigue Confirmed Active Fatigue Confirmed Active Chronic fatigue Confirmed Active Fever Confirmed Active GERD (gastroesophageal [...] Diagnosis Diagnosis Type Effective Dates Health Status Cl inical Service Informant LOM (loss of memory) Discharge Diagnosis 02/21/24 Non-Specified Anxiety Discharge Diagnosis 02/21/24 Non-Specified Chronic fatigue Discharge Diagnosis 02/21/24 Non-Specified Procedures Procedure Date Related Diagnosis Body Site [...] 1 year screening mammogram is recommended. [facility] Impresion: 1. No active disease in the [...] 12Unilat. R diagnostic mammo - BIRADS 3 13[facility] Impression: ACR BI-RADS CATEGORY 1: NEGATIVE 1. [...] significant change in appearance of the brain. Results Laboratory List Name Date Complete Blood Count w Differential (CBC ,DIFFH) 02/21/24 Comprehensive Metabolic Panel (COMP META B PANEL) 02/21/24 Hemoglobin A1C (HEMOGLOBIN, A1C) 02/21/24 Lipid Profile (LIPOPROTEINS) 02/21/24 T4, Total (T4, TOTAL) 02/21/24 Thyroid Stimulating Hormone (TSH) 4 Vitamin B12 Level (VITAMIN B12) 02/21/24 Most recent to oldest [Reference Range]: 1 eGFR CKD-EPI [>60 mL/min/1.73 m2] 76 mL/ min/1.73 m2 1 (02/21/24 12:14 PM) Estimated Average Glucose 128 mg/dL 2 (02/21/24 12:14 PM) Non-HDL 214 mg/dL 3 (02/21/24 12:14 PM) Estimated CrCl 63.21 mL/min (02/21/24 12:59 PM) MPV [9.0-12.2 fL] 10.7 fL (02/21/24 12:14 PM) Immature Gran% 0.7 % (02/21/24 12:14 PM) Neut% 54.0 % (02/21/24 12:14 PM) Lymph% 35.2 % (02/21/24 12:14 PM) [place]% 7.2 % (02/21/24 12:14 PM) Baso% 0.8 % (02/21/24 12:14 PM) Eos% 2.1 % (02/21/24 12:14 PM) Immat Gran, Abs [0-0.4 K/uL] 0.04 K/uL (02/21/24 12:14 PM) Neut, Abs [2.0-7.7 K/uL] 3.31 K/uL (02/21/24 12:14 PM) Lymph, Abs [1.0-3.4 K/uL] 2.16 K/uL (02/21/24 12:14 PM) [place], Abs [0-1.0 K/uL] 0.44 K/uL (02/21/24 12:14 PM) Baso, Abs [0-0.1 K/uL] 0.05 K/uL (02/21/24 12:14 PM) Eos, Abs [0-0.5 K/uL] 0.13 K/uL (02/21/24 12:14 PM) Type of Diff: AUTO *Unknown* (02/21/24 PM) RDW [11.5-14.2 %] 12.9 % (02/21/24 12:14 PM) Anion Gap [5-14 mmol/L] 9 mmol/L (02/21/24:14 PM) Alb [3.5-5.0 g/dL] 4.7 g/dL (02/21/24 12:14 PM) Alk Phos [38-126 unit/L] 112 unit/L (02/21/24:14 PM) ALT [<35 unit/L] 24 unit/L (02/21/24:14 PM) AST [15-46 unit/L] 28 unit/L (02/21/24 12:14 PM) B12 [211-946 pg/mL] 562 pg/mL (02/21/24 12:14 PM) BUN [7-20 mg/dL] 24 mg/dL *HI* (02/21/24 12:14 PM) Ca [8.4-10.2 mg/dL] 9.9 mg/dL (02/21/24 12:14 PM) Chol/HDL 4 (02/21/24 12:14 PM) Chol [125-200 mg/dL] 289 mg/dL *HI* (02/21/24 12:14 PM) Cl- [96-107 mmol/L] 111 mmol/L *HI* (02/21/24:14 PM) HCO3 [22-30 mmol/L] 20 mmol/L *LOW* (7/23/24 12:14 PM) Cret [0.60-1.00 mg/dL] 0.83 mg/dL (02/21/24 12:14 PM) HbA1c [4.0-6.0 %] 6.1 % *HI* (02/21/24 12:14 PM) Glu [74-106 mg/dL] 118 mg/dL *HI* (02/21/24:14 PM) Hct [35-44 %] 45.5 % *HI* (02/21/24:14 PM) HDL [>35 mg/dL] 75 mg/dL (02/21/24:14 PM) Hgb [11.7-15.0 g/dL] 14.9 g/dL (02/21/24 PM) K [3.5-5.1 mmol/L] 4.3 mmol/L (02/21/2414 PM) LDL Chol, Calculated [50-130 mg/dL] 188 mg/dL *HI* (02/21/24: PM) MCH [28-33 pg] 29.7 pg (02/21/24:14 PM) MCHC [32-36 g/dL] 32.7 g/dL (02/21/24:14 PM) MCV [81-96 fL] 90.8 fL (02/21/24:14 PM) Na [137-145 mmol/L] 140 mmol/L (02/21/24:14 PM) Plts [150-350 K/uL] 180 K/uL (02/21/2414 PM) RBC [3.90-5.00 M/uL] 5.01 M/uL *HI* (02/21/24 12:14 PM) T4 [4.5-11.7 ug/dL] 6.4 ug/dL (02/21/24:14 PM) T Bili [0.2-1.3 mg/dL] 1.1 mg/dL (02/21/24 12:14 PM) Prot [6.3-8.2 g/dL] 7.8 g/dL (02/21/24:14 PM) TG [<200 mg/dL] 130 mg/dL (7/23/24 12:14 PM) TSH [0.47-4.68 uIU/mL] 1.03 uIU/mL 4 (02/21/24 12:14 PM) WBC [4.0-10.4 K/uL] 6.13 K/uL (02/21/24 12:14 PM) 1Result Comment: Testing Performed By: Dept of Pathology [facility], [address] [facility] [place] [address] 2Result Comment: Testing Performed By: [facility], [address], [place] [address] 3Result Comment: Testing Performed By: Dept of Pathology [facility], [address] [facility] [place] [address] 4Result Comment: Testing Performed By: Dept of Pathology [facility], [address] [facility] [address], [place] [address] Vital Signs Most recent to oldest [Reference Range]: 1 Patient Weight 75.2 kg (02/21/24 11:13 AM) Heart Rate 78 bpm (02/21/24 11:13 AM) Respiratory Rate 18 br/min (02/21/24 11:13 AM) Blood Pressure 118/70mmHg (02/21/24 11:13 AM) Cuff Pulse Pressure 48 mmHg (02/21/24 11:13 AM) BP Location # 1 Left Arm (02/21/24 11:13 AM) Social History Social History Type Response Smoking Status Never smoked cigaret bandar Sex Female Sex Representation Female (finding) FCM Outpt Note * MD He, Megan Castillo: PERFORM Event Display: FCM Outpt Note Authored Date: Chief Complaint discuss concerns with memory and out of body experiences History of Present Illness * This patient is being followed longitudinally for chronic serious medical problems by Dr. Megan Cutler. Their most recent visitwith Dr. Cutler:12/07/23. For concerns of : 1) Spells of feeling disoriented/memory loss - she goes to stores & can't remember what she came there for, or realizes that she bought things that she can't rememberbuying. She feels that her long-term memory is good, its her short-term memory that is poor. Her family or friends have commented on how bad her memory is. She starts a sentence & forgets what she was about to say & can't finish the sentence. She has never forgotten things like where she parked her car, appointments or paying bills. 2) Fatigue - she is constantly exhausted all the time, no matter how much she has slept. She feels that she sleepstoomuch. She has an excessive amount of stress, so doesn't know how much thisaffects her. 3) Anxiety -She admits that she has always had some OCD tendencies, but that these are worse now.She suspects that a neighbor may be using or selling drugs. She is so upset by this, that she "just can't let it go." When she is out in public, she gets panicky if the store is crowded, or people stand too close to her. Review of Systems Review of Systems- Constitutional: +fatigue. Respiratory: no SOB. Cardiac: no chest pain. GI: no abdominal pain.. Neurologic: no headaches Physical Exam Vitals & Measurements HR:78(Monitored) RR:18 BP:118/70 SpO2:97% WT:75.2kg WT:75.200kg(Dosing) PHQ2 Data(Data Documented on:02/21/2024 11:13) Emotional health assessment NEGATIVE General : Alert, in NAD. Respiratory : Speaks easily in full sentences, with no respiratory distress. Psych : answers all questions appropriately, mood seems normal. Assessment/Plan 1.LOM (loss of memory) STATUS: newcomplaint,worse. DATA: hx & MMSEreviewed. GOAL: eval&txcause ofcognitiveissues. PLAN: her MMSE comes out lita , whichcouldindicatesignificantproblem.However,in talkingwith her,wediscussedthe possiblerole of anxiety indrivingthis.Willget extensivelabs, toincludeTFT's & Vitamin B12 level.Referto neuro.Cont current monitoring. 2.Chronic fatigue STATUS : chronic, worse. DATA : hx reviewed. GOAL : restore energy. PLAN : get extensive labs, includingCBC, TFT's,BS, etc.Discussedroleofanxiety inthis, as well. 3.Anxiety STATUS: Chronic, worse. DATA: hx reviewed. GOAL: control anxiety, to improve functioning PLAN: discussed options.[id number] daily, ROSY.Returnin2 months for recheck, callsooner ifproblems.Cont current monitoring. Return in 2-3 months. Time:Total time spent with this patient on day of evaluation including chart review, ordering, education and coordination of care elements: _38 minutes Problem List/Past Medical History Ongoing Acute asthma exacerbation Acute asthma exacerbation Acute asthma exacerbation Acute asthma exacerbation Acute blepharitis Acute recurrent sinusitis Allergic rhinitis Alopecia Annual physical exam Anxiety Arthralgia Asthma Blepharitis of both eyes BLEPHAROSPASM Chronic fatigue Chronic joint pain Cyst, Hurt's knee ESOPHAGEAL REFLUX Fatigue Fatigue Fatty liver disease, nonalcoholic Fever IVORY (generalized anxiety disorder) GERD (gastroesophageal reflux disease) Glucose intolerance (impaired glucose tolerance) Hair loss Hepatomegaly Hiatal hernia Hyperglycemia Hyperlipidemia Insomnia LOM (loss of memory) Memory loss Microscopic hematuria Mild obesity Near syncope Nephrolithiasis Neuralgia Night terrors, adult Osteopenia Overweight Overweight PTSD (post-traumatic stress disorder) Snores Solitary Pulmonary Nodule Stress UI (urinary incontinence) Urinary frequency Vitamin D deficiency Weakness White blood cell disorder Resolved Abdominal pain, acute, right upper quadrant Acute [...] mcg/inh MDI), 1 puff, inhaled, qid, PRN escitalopram(escitalopram 10 mg oral tablet), 10 mg= 1 tab, PO, Daily, 3 refills fluticasone nasal(fluticasone 50 mcg/inh nasal spray), 1 spray, each nostril, bid gabapentin(gabapentin 100 mg oral capsule), 200 mg= 2 cap, PO, bid, 3 refills Allergies Allergy Not found in Searchorange jellow-anaphylaxis Bactrim DSrash PCN (penicillin)Anaphylaxis, difficulty breathing, syncope azithromycineyes swelling Social History Smoking Status Never smoked cigarettes Alcohol - No Risk Use:Current Type:Liquor Frequency:1-2 times per month Average drinks per episode in last year:2 Employment/School Status:Employed Description:[employer] Tobacco - Denies Tobacco Use Family History High Blood Pressure: Mother. Lung cancer..: Mother. Prostate cancer..: Father. TIA: Mother. Health Status Family Member(s) Immunizations Vaccine Date Status tetanus/diphtheria/pertuss, acel (Tdap) 11/14/2018 Given Recommendations Health Maintenance Pending(in the next year) Due Adult Influenza Vaccine due01/29/24and every 1year Adult COVID-19 Vaccination due02/21/24Unknown Frequency Adult Social Determinants of Health Screening due02/21/24Unknown Frequency Colorectal Cancer Screening due02/21/24Unknown Frequency Medicare Annual Wellness Visit due02/21/24and every 1year Osteoporosis Screening due02/21/24One-time only Pneumococcal Vaccine Older Adults due02/21/24One-time only Shingles Vaccine due02/21/24One-time only Due In Future Breast Cancer Screening not due until01/07/25and every 731day Satisfied(in the past 1 year) Satisfied Body Mass Index on12/07/23.Satisfied by MARIA R Levine Hannah Electronic Signature on File Electronically Reviewed/Signed by: Megan Cutler MD Author Signature Dt/Tm:02/21/2024 12:19 PM [facility] [address], [facility] [address] [place] [address] [facility] Patient Care team information Care Team Personnel Name: MD He, Megan Castillo Position: Physician - Family Med Member Role: Primary Care Provider Address: [address] [place] [address], [place] [address] [place] Care Team Related Persons Name: DAYDAY ESPINO
--- OUTSIDE RECORDS SUMMARY | 2024-03-31 19:23 | External Medical Summary | Summary of Care ---
Author Name Unknown Organization [facility] Address [address] [place] [address] Phone [phone] Care Team Providers Care Principal Developer Name Role Phone Megan Cutler MD Primary Care Provider [phone] Reason for Visit * Reason Comments Botox Injection * Precert (Within 10 days (routine)) - Authorized Specialty Diagnoses / Procedures Referred By Nella millard Referred To Contact Ophthalmology Diagnoses Blepharospasm Procedures OR INJECTION,ONABOTULINUMTOXINA OR INCOBOTULINUMTOXIN A Vinh Vazquez, [address] [facility] [place] [address] Vinh Vazquez DO [facility] [address] Referral ID Status Reason Start Date Expiration Date V isits Requested Visits Authorized [id number] Authorized Precert 04/07/2023 04/05/2024 7 7 Encounter Details Date Type Department Care Team (Late st Contact Info) Description 10/31/2023 7:50 AM EDT Office Visit Ophthalmology, [facility] [address] [facility] [address] Vinh Vazquez DO [address] [place], [place] [id number] Blepharospasm* Allergies Active Allergy Reactions Criticality Noted [...] to dermatitis on the leg until, Pharmacy: [facility]/pharmacy #[id number] 01/14/2021 Active Hospital, Clinic, or Other Facility Administered Medication Ordered Dose Route Frequency Start Date End Date Status incobotulinumtoxinA (Xeomin) inj 70 UnitsIndications:Blepharosp asm 70 Units IM ONCE 10/31/2023 10/31/2023 Ended documented as of this encounter (statuses [...] eye central frontalis-2.5 units Procerus - 2.5units Surveying Or Spatial Science Technician Muscle/ medial orbicularis: 5 units Orbicularis Oculi Orbital laterally 5 units upper eyelid: Medial - none Lateral - 10 units over 2 sites Lower eyelid Medial - 2.5 units Lateral - 5 units Central procerus 2.5 units Left eye Central Frontalis - 2.5 units Procerus- 2.5 units Surveying Or Spatial Science Technician Muscle/medial orbicularis: 5 units Orbicularis Oculi Orbital [...] 12/19/2023 7:50 AM EDT Office Visit Ophthalmology, [address] [place] [address] Vinh Vazquez, DO [address] [place] [address] Health Maintenance Due Date Last Done Comments [...] 70 Units 70 Units, Intramuscular, ONCE, On 10/31/23 at 0915, For 1 dose Given 10/31/2023 8:55 AM EDT 70 Units Other-Specify documented in this encounter Care Teams Principal Developer Relationship Specialty Start Date End Date Megan Cutler MD [facility] [address] [place] [address] PCP - General Family Medicine 08/11/16 documented as of this encounter
--- OUTSIDE RECORDS SUMMARY | 2024-03-31 19:23 | External Medical Summary | Continuity of Care Document ---
Author Name Unknown Organization [facility] [address] [facility] 2 Address [address] [phone] Care Team Providers Care Ventilation Equipment Tender Name Role Phone Megan Cutler Primary Care Physician [phone] [id number] Date(s): 02/08/24 - 02/08/24 [facility] [address] [place] 2 [address] [phone] Encounter Diagnosis SK (seborrheic keratosis)(Discharge Diagnosis) - 02/08/24 Discharge Disposition: Home or Self Care Attending Physician: MD Augustine David L Allergies, Adverse Reactions, Alerts Substance Criticality Severity Reaction Reaction Severity Status azithromycin eyes swelling Act cheyenne Bactrim DS 1 rash Active PCN (penicillin) Anaphylaxis difficulty breathing syncope Active Allergy Not found in Search orange jellow-anaphylaxis Active 1rash Assessment and Plan Extracted from: Title:Clinical Document Author:MD Augustine David L Date:02/08/24 OUTPATIENT NOTE Name: KENNEDY MCKEON Patient Number:[id number] : 1955 Date of Service: 02/08/2024 _ Ms. Mckeon comes in for a recheck of her skin. She has no prior history of skin cancer. She notes an irritated lesion on her chest. She does use sun protection. Physical examination: He is well-developed well-nourished white female with type II skin. Alert and oriented x 3. Examination of the face ears neck back chest hands arms legs and feet reveal some brown verruca hyperkeratotic papules on the trunk. She has a 5 mm pink Sosa hyperkeratotic inflamed papule on the mid sternal chest. She does have a some scattered benign nevi on the upper trunk and freckling on the arms. Impression: #1 seborrheic keratosis on the trunk. #2 benign nevi on the trunk. #3 inflamed seborrheic keratosis on the sternal chest. #4 no evidence for atypical nevi or skin cancer. Plan: I discussed the procedure risk benefits and scarring, she gives verbal consent for cryotherapy. Cryotherapy was applied to the irritated lesion on the chest. She tolerated very well. Wound care instructions given. Sun protection was stressed. She will return for recheck in 1 year. Immunizations Given and Recorded Vaccine Date Status Refusal Reason tetanus/diphtheria/pertuss, acel (Tdap) 11/14/18 G iven Medications albuterol CFC free 90 mcg/inh MDI Start: 06/16/18 3:10:00 PM EST, 1 puff, inhaled, qid, Disp# 1 each, PRN: as needed for wheezing, Pharmacy: [facility] [address] Start Date: 06/16/18 Status: Ordered fluticasone 50 mcg/inh nasal spray Start: 05/19/23 11:08:00 AM EDT, 1 spray, each nostril, bid, Disp# 16 g, Pharmacy: [facility] #[id number] Start Date: 05/19/23 Status: Ordered gabapentin 100 mg oral capsule Start: 07/29/23 9:03:00 AM EST, 2 cap, PO, bid, Disp# 360 cap, Refills: 3, Pharmacy: [facility] Start Date: 07/29/23 Stop Date: 07/23/24 Status: Ordered LORazepam 0.5 mg oral tablet Start: 07/29/23 11:01:00 AM EST, 1 tab, PO, tid, Disp# 90 tab, Refills: 0, PRN: as needed for anxiety, Pharmacy: [facility] #[id number] Start Date: 07/29/23 Status: Ordered predniSONE 10 mg oral tablet Start: 12/07/23 4:21:00 PM EDT, 1 tab, PO, bid, Disp# 10 tab, Refills: 0, [facility]: [id number] Start Date: 12/07/23 Stop Date: 12/12/23 Status: Ordered Problem List Condition Confirmation Course Effective Dates [...] Dates Health Status Cl inical Service Informant SK (seborrheic keratosis) Discharge Diagnosis 02/08/24 Procedures Procedure Date Related Diagnosis Body Site [...] and ankle surgery 12/06/12 Completed cataract surgery 12/27/11 Complete d dilation and curettage Co mpleted [...] 1 year screening mammogram is recommended. [facility] Impresion: 1. No active disease in the [...] R diagnostic mammo - BIRADS 3 [facility] Impression: ACR BI-RADS CATEGORY 1: NEGATIVE 1. [...] significant change in appearance of the brain. Social History Social History Type Response Smoking Status Never smoked cigaret bandar Sex Female Outpatient Note * MD Fawn, Ba Castillo: PERFORM Event Display: .Outpt Note Authored Date: [id number] OUTPATIENT NOTE Name: KENNEDY MCKEON Patient Number:[id number] : 1955 Date of Service: 02/08/2024 _ Ms. Mckeon comes in for a recheck of her skin. She has no prior history of skin cancer. She notes an irritated lesion on her chest. She does use sun protection. Physical examination: He is well-developed well-nourished white female with type II skin. Alert andoriented x 3. Examination of the face ears neck back chest hands arms legs and feet reveal some brown verruca hyperkeratotic papules on the trunk. She has a 5 mm pink Sosa hyperkeratotic inflamed papule on the mid sternal chest. She does have a some scattered benign nevi on the upper trunk and freckling on the arms. Impression: #1 seborrheic keratosis on the trunk. #2 benign nevi on the trunk. #3 inflamed seborrheic keratosis on the sternal chest. #4 no evidence for atypical nevi or skin cancer. Plan: I discussed the procedure risk benefits and scarring, she gives verbal consent for cryotherapy. Cryotherapy was applied to the irritated lesion on the chest. She tolerated very well. Wound careinstructions given. Sun protection was stressed. She will return for recheck in 1 year. Electronic Signature on File Electronically Reviewed/Signed by: Ba Augustine MD Author Signature Dt/Tm:02/08/2024 08:36 AM Department of Dermatology DLS Patient Care team information Care Team Personnel Name: MD Cutler Amy L Position: Physician - Family Med Member Role: Primary Care Provider Address: Address: [address] [place] [address] [address] [place] [address] Care Team Related Persons Name: [employer] SERVERDAYDAY Address: [address] [facility] [id number]
--- OUTSIDE RECORDS SUMMARY | 2024-03-31 19:23 | External Medical Summary | Summary of Care ---
Author Name Unknown Organization [facility] Address [address] [place] [address] Phone [phone] Care Team Providers Care Pharmacy General Manager Name Role Phone Megan Cutler MD Primary Care Provider [phone] Reason for Visit * Reason Comments Botox Injection Encounter Details Date Type Department Care Team (Late st Contact Info) Description 12/28/2023 8:00 AM EDT Office Visit Ophthalmology, [facility] 132 [facility] [place] [address] Vinh Vazquez, DO [address] [place], [place] [phone] Blepharospasm* Allergies Active Allergy Reactions Criticality Noted Date Comments Azithromycin 10/01/2019 Food (See Comments) 11/17/2020 Other reaction(s): orange jellow-anaphylaxis Penicillins 09/14/2000 Sulfa Antibiotics 11/18/2014 Sulfamethoxazole-Trimethopri m 11/17/2020 Other reaction(s): rash rash rash documented as of this encounter (statuses as of 12/28/2023) Medications Medication Sig Dispensed Refills Start Date End Date Status cholecalciferol (VITAMIN D3) 400 UNIT TABS Active gabapentin (NEURONTIN) 100 MG Capsule 10/04/2016 Active Triamcinolone Acetonide 0.1 % External Cream (Aristocort) Start: 01/14/21 10:21:00 EDT, 1 appl, topical, bid, Disp# 60 g, Refills: 2, apply to dermatitis on the leg until, Pharmacy: [id number] 01/14/2021 Active Hospital, Clinic, or Other Facility Administered Medication Ordered Dose Route Frequency Start Date End Date Status incobotulinumtoxinA (Xeomin) inj 70 UnitsIndications:Blepharosp asm 70 Units IM ONCE 12/28/2023 12/28/2023 Active documented as of this encounter (statuses as of 12/28/2023) Active Problems Problem Noted Date Diagnosed Date 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 Caballero Deviated nasal septum 10/07/2005 Overview: Dr. Caballero Headache Overview: ICD-10 update of inactive term Anxiety state MERCEDES TOURETTE DISORDER documented as of this encounter (statuses as of 12/28/2023) Immunizations Name Administration Dates Next Due TDAP [...] of this encounter Progress Notes * Vinh Vazquez, - 12/28/2023 8:03 AM EDT Lis Candelario is a 68 year old female who presents for Xeomin injections. Pt with history of BEBand agrees to injections. Reports good response in the past but requires every 2 months. Good response but reported wearing off sooner. EXAM: See annotated facial image IMPRESSION: 1. Blepharospasms PLAN: 1. XEOMIN today Type: XEOMIN 5 units per 0.1ml Right eye central frontalis-2.5 units Procerus - 2.5units Woodwinds Teacher Muscle/ medial orbicularis: 5 units Orbicularis Oculi Orbital laterally 5 units upper eyelid: Medial - none Lateral - 10 units over 2 sites Lower eyelid Medial - 2.5 units Lateral - 5 units Central procerus 2.5 units Left eye Central Frontalis - 2.5 units Procerus- 2.5 units Woodwinds Teacher Muscle/medial orbicularis: 5 units Orbicularis Oculi Orbital laterally 5 units and 2.5 units central upper eyelid: Medial - Lateral - 10 units over 2 sites Lower eyelid Medial -2.5 units Lateral -5 units Total Given- 70 units Wasted- 30 units Tolerated well No complications 2. 2 month return Vinh Vazquez DO documented in this encounter Nursing Notes * Eli Guillen LPN - 12/28/2023 8:05 AM EDT Lis Candelario is a 68 year old female who presents for 2 months Botox injections. 70 units used last visit for blepharospasm. Ms. Candelario currently states pleased with past results. documented in this encounter Plan of Treatment Upcoming Encounters Date Type Department Care Team (Late st Contact Info) Description 02/27/2024 7:50 AM EDT Office Visit Ophthalmology, [address] [address] Vinh Vazquez DO [address] [place] [id number] Scheduled Orders Name Type Priority Associated Diagnoses Orde r Schedule DESTRUCTION OF FACE MUSCLE NERVE Procedures Routine Blepharospasm Ordered: 12/28/2023 Health Maintenance Due Date Last Done Comments [...] Primary documented in this encounter Care Teams Pharmacy General Manager Relationship Specialty Start Date End Date Megan Cutler MD [address] [address] PCP - General Family Medicine 08/11/16 documented as of this encounter
--- OUTSIDE RECORDS SUMMARY | 2024-03-31 19:23 | External Medical Summary | Summary of Care ---
Author Name Unknown Organization [facility] Address [address] [place] [address] Phone [phone] Care Team Providers Care Field Artillery Radar Operator Name Role Phone Megan Cutler MD Primary Care Provider [phone] Reason for Visit * Reason Comments Botox Injection Encounter Details Date Type Department Care Team (Late st Contact Info) Description 12/28/2023 8:00 AM EDT Office Visit Ophthalmology, [facility] 132 [facility] [place] [address] Vinh Vazquez, DO [address] [place], [place] [phone] Blepharospasm* Allergies Active Allergy Reactions Criticality Noted [...] asm 70 Units IM ONCE 12/28/2023 12/28/2023 Ended documented as of this encounter (statuses [...] eye central frontalis-2.5 units Procerus - 2.5units Chronometer Tester Muscle/ medial orbicularis: 5 units Orbicularis Oculi Orbital laterally 5 units upper eyelid: Medial - none Lateral - 10 units over 2 sites Lower eyelid Medial - 2.5 units Lateral - 5 units Central procerus 2.5 units Left eye Central Frontalis - 2.5 units Procerus- 2.5 units Chronometer Tester Muscle/medial orbicularis: 5 units Orbicularis Oculi Orbital [...] 02/27/2024 7:50 AM EDT Office Visit Ophthalmology, [address] [address] Vinh Vazquez DO [address] [place] [address] Scheduled Orders Name Type Priority Associated Diagnoses [...] 70 Units 70 Units, Intramuscular, ONCE, On Tue12/28/23 at 0900, For 1 dose Given 12/28/2023 9:07 AM EDT 70 Units Other-Specify documented in this encounter Care Teams Field Artillery Radar Operator Relationship Specialty Start Date End Date Megan Cutler MD [address] [place] [address] PCP - General Family Medicine 08/11/16 documented as of this encounter
--- OUTSIDE RECORDS SUMMARY | 2024-03-31 19:23 | External Medical Summary | Summary of Care ---
Author Name Unknown Organization [facility] Address [address] [place] [address] Phone [phone] Care Team Providers Care Boat Tester Name Role Phone Megan Cutler MD Primary Care Provider [phone] Reason for Visit * Reason Comments Botox Injection * Precert (Within 10 days (routine)) - Authorized Specialty Diagnoses / Procedures Referred By Nella millard Referred To Contact Ophthalmology Diagnoses Blepharospasm Procedures [place] INJECTION,ONABOTULINUMTOXINA [place] INCOBOTULINUMTOXIN A Vinh Vazquez DO 132 [facility] [place] [address] Vinh Vazquez DO [address] [facility] [address] Referral ID Status Reason Start Date Expiration Date V isits Requested Visits Authorized [id number] Authorized Precert 04/07/2023 04/05/2024 7 7 Encounter Details Date Type Department Care Team (Late st Contact Info) Description 02/27/2024 7:50 AM EDT Office Visit Ophthalmology, [facility] [address] [place] [address] Vinh Vazquez DO [address] [place], [place] [phone] Blepharospasm* Allergies Active Allergy Reactions Criticality Noted [...] to dermatitis on the leg until, Pharmacy: [facility] #[id number] 01/14/2021 Active Hospital, Clinic, or Other Facility [...] DO - 02/27/2024 7:47 AM EDT Lis Candelario is a 68 year old female who returns today for Xeomin injections. Pt with history of BEB and agrees to injections. Reports good response in the past but requires every 2 months. Good response. EXAM: See annotated facial image IMPRESSION: 1. Blepharospasms PLAN: 1. XEOMIN today Type: XEOMIN 5 units per 0.1ml Right eye central frontalis-2.5 units Procerus - 2.5units Dictaphone Mechanic Muscle/ medial orbicularis: 5 units Orbicularis Oculi Orbital laterally 5 units upper eyelid: Medial - none Lateral - 10 units over 2 sites Lower eyelid Medial - 2.5 units Lateral - 5 units Central procerus 2.5 units Left eye Central Frontalis - 2.5 units Procerus- 2.5 units Dictaphone Mechanic Muscle/medial orbicularis: 5 units Orbicularis Oculi Orbital [...] Other-Specify documented in this encounter Care Teams Boat Tester Relationship Specialty Start Date End Date Megan Cutler MD [facility] Selam Larose [address], [place] [address] PCP - General Family Medicine 08/11/16 documented as of this encounter
--- OUTSIDE RECORDS SUMMARY | 2024-03-31 19:23 | External Medical Summary | Summary of Care ---
Author Name Unknown Organization [facility] Address [address] [place] [address] Phone [phone] Care Team Providers Care Superintendent Power Name Role Phone Megan Cutler MD Primary Care Provider [phone] Reason for Visit * Reason Comments Botox Injection * Precert (Within 10 days (routine)) - Authorized Specialty Diagnoses / Procedures Referred By Nella millard Referred To Contact Ophthalmology Diagnoses Blepharospasm Procedures [place] INJECTION,ONABOTULINUMTOXINA [place] INCOBOTULINUMTOXIN A Vinh Vazquez, 132 [facility] [place] [address] Vinh Vazquez DO [address] [facility] [address] Referral ID Status Reason Start Date Expiration Date V isits Requested Visits Authorized [id number] Authorized Precert 04/07/2023 04/05/2024 7 7 Encounter Details Date Type Department Care Team (Late st Contact Info) Description 10/31/2023 7:50 AM EDT Office Visit Ophthalmology, [facility] [address] [facility] [address] Vinh Vazquez DO [address] [place], [place] [phone] Blepharospasm* Allergies Active Allergy Reactions Criticality Noted Date Comments Azithromycin 10/01/2019 Food (See Comments) 11/17/2020 Other reaction(s): orange jellow-anaphylaxis Penicillins 09/14/2000 Sulfa Antibiotics 11/18/2014 Sulfamethoxazole-Trimethopri m 11/17/2020 Other reaction(s): rash rash rash documented as of this encounter (statuses as of 12/12/2023) Medications Medication Sig Dispensed Refills Start Date End Date Status cholecalciferol (VITAMIN D3) 400 UNIT TABS 0 Active gabapentin (NEURONTIN) 100 MG Capsule 0 10/04/2016 Active Triamcinolone Acetonide 0.1 % External Cream (Aristocort) Start: 01/14/21 10:21:00 EDT, 1 appl, topical, bid, Disp# 60 g, Refills: 2, apply to dermatitis on the leg until, Pharmacy: [facility] #[id number] 01/14/2021 Active Hospital, Clinic, or Other Facility Administered Medication Ordered Dose Route Frequency Start Date End Date Status incobotulinumtoxinA (Xeomin) inj 70 UnitsIndications:Blepharosp asm 70 Units IM ONCE 10/31/2023 10/31/2023 Ended documented as of this encounter (statuses as of 12/12/2023) Active Problems Problem Noted Date Diagnosed Date 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 Caballero Deviated nasal septum 10/07/2005 Overview: Dr. Caballero Headache Overview: ICD-10 update of inactive term Anxiety state MERCEDES TOURETTE DISORDER documented as of this encounter (statuses as of 12/12/2023) Immunizations Name Administration Dates Next Due TDAP [...] eye central frontalis-2.5 units Procerus - 2.5units Adjunct Phlebotomy Instructor Muscle/ medial orbicularis: 5 units Orbicularis Oculi Orbital laterally 5 units upper eyelid: Medial - none Lateral - 10 units over 2 sites Lower eyelid Medial - 2.5 units Lateral - 5 units Central procerus 2.5 units Left eye Central Frontalis - 2.5 units Procerus- 2.5 units Adjunct Phlebotomy Instructor Muscle/medial orbicularis: 5 units Orbicularis Oculi Orbital [...] 12/19/2023 7:50 AM EDT Office Visit Ophthalmology, [address] [place] [address] Vinh Vazquez, DO [address] [place] [address] 02/13/2024 7:50 AM EDT Office Visit Ophthalmology, [facility] [address] [facility] [place] [address] Vinh Vazquez, DO [address] [place] [address] Health Maintenance Due Date Last Done Comments [...] Other-Specify documented in this encounter Care Teams Superintendent Power Relationship Specialty Start Date End Date Megan Cutler MD [address] [place], [place] [address]e [facility] 1 [place] [address] PCP - General Family Medicine 08/11/16 documented as of this encounter
--- OUTSIDE RECORDS SUMMARY | 2024-03-31 19:23 | External Medical Summary | Summary of Care ---
Author Name Unknown Organization [facility] Address [address] [place] [address] Phone [phone] Care Team Providers Care Manufacturing Group Leader Name Role Phone Megan Cutler MD Primary Care Provider [phone] Reason for Visit * Reason Onset Date Comments Appointment 10/31/2023 Call Back 10/31/2023 Patient requesti ng call back to get appt scheduled without conflict. Encounter Details Date Type Department Care Team (Late st Contact Info) Description 10/31/2023 Telephone [facility] [address] [place] [phone] Vinh Vazquez DO [address] [place] [address] Appointment; Call Back (Patient requesting... Allergies Active Allergy Reactions Criticality Noted Date Comments Azithromycin 10/01/2019 Food (See Comments) 11/17/2020 Other reaction(s): orange jellow-anaphylaxis Penicillins 09/14/2000 Sulfa Antibiotics 11/18/2014 Sulfamethoxazole-Trimethopri m 11/17/2020 Other reaction(s): rash rash rash documented as of this encounter (statuses as of 01/30/2024) Medications Medication Sig Dispensed Refills Start Date End Date Status cholecalciferol (VITAMIN D3) 400 UNIT TABS Active gabapentin (NEURONTIN) 100 MG Capsule 10/04/2016 Active Triamcinolone Acetonide 0.1 % External Cream (Aristocort) Start: 01/14/21 10:21:00 EDT, 1 appl, topical, bid, Disp# 60 g, Refills: 2, apply to dermatitis on the leg until, Pharmacy: [id number] 01/14/2021 Active documented as of this encounter (statuses as of 01/30/2024) Active Problems Problem Noted Date Diagnosed Date 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 Caballero Deviated nasal septum 10/07/2005 Overview: Dr. Caballero Headache Overview: ICD-10 update of inactive term Anxiety state MERCEDES TOURETTE DISORDER documented as of this encounter (statuses as of 01/30/2024) Immunizations Name Administration Dates Next Due TDAP, [...] on file documented as of this encounter Miscellaneous Notes * Telephone Encounter - Jorge Verduzco OSA - 11/18/2023 10:16 AM EDT Patient has been notified of the message. Patient has no further questions. Patient verified the appt information. * Telephone Encounter - Ebony Hall PA-C - 11/15/2023 2:33 PM EDT I counted twice, and 02/12 will be 8 weeks after her most recent botox injection on 12/18. So that date should be fine to schedule her. * Telephone Encounter - Iwona uGerrier OSA - 11/11/2023 9:54 AM EDT Patient requesting call back to get appt scheduled without conflict. Patient has waited since Tuesday11/08/23 to hear anything from clinic. * Telephone Encounter - Kathleen Novak OSA - 11/08/2023 9:50 AM EDT Patient states that she needs an appointment on 02/13/2024 at 7:50am, the is too long to wait. * Telephone Encounter - Gayathri Lazar OSA - 10/31/2023 7:54 AM EDT Pt needs to schedule the week of February 12 at 7:50 am with aureliano documented in this encounter Plan of Treatment Upcoming Encounters Date Type Department Care Team (Late st Contact Info) Description 02/27/2024 7:50 AM EDT Office Visit Ophthalmology, [address] [place] [address] Vinh Vazquez, DO [address] [place] [address] [place] [address] Health Maintenance Due Date Last Done Comments [...] Not on filedocumented as of this encounter Care Teams Manufacturing Group Leader Relationship Specialty Start Date End Date Megan Cutler MD [address] [place] [address] PCP - General Family Medicine 08/11/16 documented as of this encounter
[2024-03-31 19:39] LABS: Base Excess VBG -0.9 mEq/L; HCO3 VBG 22 mmol/L; Oxygen Saturation VBG 96.7 %; PCO2 VBG 30 mmHg (38-50); PO2 VBG 126 mmHg; pH VBG 7.47 (7.36-7.41)
[2024-03-31 19:48] LABS: Basophils # (auto) 0.04 K/uL (0.00-0.20); Basophils % (auto) 0.5 %; Eosinophils # (auto) 0.08 K/uL (0.00-0.50); Eosinophils % (auto) 0.9 %; Hematocrit (blood only) 43.3 % (37.0-47.0); Hemoglobin 14.4 g/dl (12.0-16.0); Immature Granulocytes # (auto) 0.02 K/uL (0.01-0.20); Immature Granulocytes % (auto) 0.2 %; Lymphocytes # (auto) 0.71 K/uL (1.20-3.40); Lymphocytes % (auto) 8.4 %; Mean Corpuscular Hemoglobin 28.5 pg (25.0-34.0); Mean Corpuscular Hgb Conc 33.3 g/dL (32.0-36.0); Mean Corpuscular Volume 85.7 fL (80.0-100.0); Mean Platelet Volume 9.9 fL (9.4-12.4); Monocytes # (auto) 0.38 K/uL (0.11-0.59); Monocytes % (auto) 4.5 %; Neutrophils # (auto) 7.27 K/uL (1.40-6.50); Neutrophils % (auto) 85.5 %; Platelet Count 141 K/uL (130-400); RDW Coefficient of Variation 12.7 % (11.5-14.5); RDW Standard Deviation 39.3 fL (36.4-46.3); Red Blood Count 5.05 M/uL (4.20-5.40)
--- NOTE | 2024-03-31 19:50 | Emergency Department Note ---
Impression & Plan Generalized weakness, COVID-19 ED Provider Note HISTORY OF PRESENT ILLNESS: Patient is a 68-year-old female presenting with generalized weakness and shortness of breath. Patient reports that symptoms started within the last 24 hours. She reports that today she woke up and was unable to ambulate secondary to lower extremity weakness. She states she was recently around 2 small children who had cough and runny nose. She reports that she had significant chills throughout the day today and turned her heat on at home up to 80 degrees. She states that she was still wrapped up in multiple blankets secondary to feeling so chilled. She denies any measured fevers at home. She reports generalized bodyaches. Denies any numbness or tingling in her extremities. Denies any recent falls or head injury. She reports she was so weak she had to crawl on the floor to get to her phone to call for help. Denies any dysuria or hematuria. Denies any chest pain. Reports feeling slightly short of breath after having to crawl on the floor to the phone. She denies any DVT or PE history. Denies any history of cardiac stents. She is not on any anticoagulation. ROS: as above PHYSICAL EXAM: Constitutional: Patient appears in no acute distress. HENT: Head: Normocephalic and atraumatic. Eyes: EOMI, PERRL Mouth/Throat: Mucous membranes moist. Neck: Trachea midline. Neck supple. Cardiovascular: Tachycardic with regular rhythm. No murmurs, rubs or gallops. Intact distal pulses. Pulmonary/Chest: No respiratory distress. Breath sounds clear and equal bilaterally. No wheezes or rales. Abdominal: Abdomen soft, no tenderness, rebound or guarding. Musculoskeletal: No edema, tenderness or deformity noted. Patient is able to straight leg raise bilaterally. Skin: Warm and dry. No rash, erythema, pallor or cyanosis Psychiatric: Appropriate mood and affect for situation. Neurological: Alert and keenly responsive. CN II-XII grossly intact, moving all extremities equally and fully. MDM: - Vitals signs showed hypertension, tachycardia and fever. - History obtained via patient. History as above. - Chronic conditions affecting care: asthma - Differential diagnoses include, but are not limited to: CVA; intracranial hemorrhage; ACS; dysrhythmia; electrolyte abnormality; viral syndrome; UTI; pneumonia - Order placed for continuous cardiac monitoring. At this time, monitor showed rate of 92 bpm with normal sinus rhythm, per my interpretation. - External medical records reviewed. Discharge summary dated 05/15/2023 was reviewed. Patient was admitted for metabolic encephalopathy secondary to COVID- 19 - EKG interpreted by myself showed normal sinus rhythm. Rate tachycardic at 102 bpm. QT 332. No acute ischemic changes. - Laboratory workup interpreted by myself showed normal WBC; normal PT/INR; stable electrolytes; hyperglycemia (glucose 140); normal troponin; normal BNP - Viral panel positive for COVID-19 - CXR negative for pneumonia, per my interpretation. - Patient given 6 mg IV decadron in ER. - Patient's oxygen saturations are borderline at 90 to 93%. She is still having significant weakness and lives alone, so concern about patient's safety and sending her home given that she was crawling around on the ground because of her weakness. Will admit to hospital service for further evaluation and management. - Discussion was had with watch caser about patient's case and need for admission - Hospitalist consulted for admission - [facility] ASSESSMENT AND PLAN: Diagnosis: Generalized weakness; COVID-19 infection Plan: Admit Past Med/Surg History Problem List (Updated 03/31/24 @ 22:09 by Elma Quinones MD) COVID-19 (Acute) Generalized weakness (Acute) COVID-19 (Acute) Adenovirus infection (Acute) Back pain (Acute) Accidental fall (Acute) Moderate persistent asthma Overweight (BMI 25.0-29.9) Shortness of breath Shortness of breath Frequent headaches (Acute) Hypokalemia (Acute) Leukocytosis, unspecified (Acute) Shortness of breath (Acute) Weakness (Acute) Family History (Updated 03/12/20 @ 15:46 by JULIA Cuevas) Other Cancer Lung disease Denies family history of Diabetes Heart disease Social History (Updated 03/12/20 @ 15:45 by JULIA Cuevas) Smoking Status: Never smoker Hx Alcohol Use: No Hx Substance Use: No Feels Safe at Home: Yes Allergies Allergies Allergy/AdvReac Type Severity Reaction Status Date / Time Sulfa (Sulfonamide Allergy Mild "SULFA Verified 03/12/20 08:54 Antibiotics) DRUGS" Penicillins Allergy Unknown Verified 03/12/20 08:54 wheat Allergy Unknown . Verified 03/12/20 08:54 ORANGE JELLO Allergy Unknown CAN'T GET Uncoded 03/12/20 08:54 BREATH Home Meds Home Medications Medication Instructions Recorded Confirmed gabapentin 100 mg capsule See Rx Instructions .Route .COMPLEX 03/12/20 05/12/23 Results & Data (ED) Vital Signs Vital Signs - 24 hr 03/31/24 19:24 03/31/24 19:27 03/31/24 19:30 Temperature Temperature Source Pulse Rate 103 H 101 H Pulse Rate from SpO2 Sensor 101 H Respiratory Rate 24 Respiratory Effort / Characteristics Respiratory Depth Respiratory Pattern Blood Pressure 135/91 148/98 H Blood Pressure Mean 105 102 Pulse Oximetry 91 Oxygen Delivery Method Oxygen Flow Rate Sepsis Recent Fever Within 48 Hours Sepsis New/Unexplained Change in Mental Status Sepsis Action Taken by Nursing 03/31/24 19:34 03/31/24 19:35 03/31/24 19:35 Temperature Temperature Source Pulse Rate 103 H Pulse Rate from SpO2 Sensor Respiratory Rate 18 Respiratory Effort / Characteristics Non-Labored Spontaneous Respiratory Depth Respiratory Pattern Regular Blood Pressure Blood Pressure Mean Pulse Oximetry 94 Oxygen Delivery Method Room Air Room Air Oxygen Flow Rate 94 Sepsis Recent Fever Within 48 Hours Sepsis New/Unexplained Change in Mental Status Sepsis Action Taken by Nursing 03/31/24 19:35 03/31/24 19:39 03/31/24 20:18 Temperature 37.8 C H Temperature Source Oral Pulse Rate 103 H 100 H 102 H Pulse Rate from SpO2 Sensor 100 H 102 H Respiratory Rate 16 22 24 Respiratory Effort / Characteristics Non-Labored Spontaneous Respiratory Depth Normal Respiratory Pattern Blood Pressure 161/86 H 148/98 H Blood Pressure Mean 111 114 Pulse Oximetry 94 92 94 Oxygen Delivery Method Room Air Oxygen Flow Rate Sepsis Recent Fever Within 48 Hours Yes Sepsis New/Unexplained Change in Mental Status No Sepsis Action Taken by Nursing No Action Required 03/31/24 20:30 03/31/24 20:45 03/31/24 21:00 Temperature Temperature Source Pulse Rate 100 H Pulse Rate from SpO2 Sensor 100 H Respiratory Rate 22 Respiratory Effort / Characteristics Respiratory Depth Respiratory Pattern Blood Pressure 140/83 146/85 H Blood Pressure Mean 102 102 Pulse Oximetry 92 Oxygen Delivery Method Oxygen Flow Rate Sepsis Recent Fever Within 48 Hours Sepsis New/Unexplained Change in Mental Status Sepsis Action Taken by Nursing 03/31/24 21:00 03/31/24 21:00 Temperature Temperature Source Pulse Rate 98 H Pulse Rate from SpO2 Sensor 98 H Respiratory Rate 25 H Respiratory Effort / Characteristics Respiratory Depth Respiratory Pattern Blood Pressure 146/85 H Blood Pressure Mean 102 Pulse Oximetry 93 Oxygen Delivery Method Oxygen Flow Rate Sepsis Recent Fever Within 48 Hours Sepsis New/Unexplained Change in Mental Status Sepsis Action Taken by Nursing Laboratory Data 03/31/24 19:35 03/31/24 19:35 Lab Results 03/31/24 03/31/24 Range/Units 19:35 20:28 WBC 8.50 (4.8-10.8) K/ul RBC 5.05 (4.20-5.40) M/uL Hgb 14.4 (12.0-16.0) g/dl Hct 43.3 (37.0-47.0) % MCV 85.7 (80.0-100.0) fL MCH 28.5 (25.0-34.0) pg MCHC 33.3 (32.0-36.0) g/dL RDW Std Deviation 39.3 (36.4-46.3) fL RDW Coeff of Raymond 12.7 (11.5-14.5) % Plt Count 141 (130-400) K/uL MPV 9.9 (9.4-12.4) fL Immature Gran % (Auto) 0.2 % Neut % (Auto) 85.5 % Lymph % (Auto) 8.4 % Wood % (Auto) 4.5 % Eos % (Auto) 0.9 % Baso % (Auto) 0.5 % Neut # (Auto) 7.27 H (1.40-6.50) K/uL Lymph # (Auto) 0.71 L (1.20-3.40) K/uL Wood # (Auto) 0.38 (0.11-0.59) K/uL Eos # (Auto) 0.08 (0.00-0.50) K/uL Baso # (Auto) 0.04 (0.00-0.20) K/uL Immature Gran # (Auto) 0.02 (0.01-0.20) K/uL PT Cancelled 10.9 INR Cancelled 1.0 VBG pH 7.47 H (7.36-7.41) VBG pCO2 30 L (38-50) mmHg VBG pO2 126 mmHg VBG HCO3 22 mmol/L VBG O2 Saturation 96.7 % VBG Base Excess -0.9 mEq/L Sodium 139 (136-145) mmol/L Potassium 3.6 (3.5-5.1) mmol/L Chloride 106 (98-107) mmol/L Carbon Dioxide 23 (21-32) mmol/L Anion Gap 10 (3-11) BUN 12 (6-23) mg/dl Creatinine 0.82 (0.6-1.2) mg/dl Est Cr Clr Drug Dosing 65.8 ml/min Est GFR ( Amer) 84.6 ml/min Est GFR (Non-Af Amer) 73.0 ml/min BUN/Creatinine Ratio 14.6 (10-20) Glucose 140 H (70-99(Fasting)) mg/dl Calcium 9.6 (8.6-10.3) mg/dl Magnesium 1.7 (1.7-2.4) mg/dl Total Bilirubin 1.1 H (0.2-1.0) mg/dl AST 17 (13-39) U/L ALT 16 (7-52) U/L Alkaline Phosphatase 102 (34-104) U/L Troponin I High Sens 4.3 (0-14) pg/ml B-Natriuretic Peptide 49 (0-100) pg/ml Total Protein 7.4 (6.0-8.3) gm/dl Albumin 4.7 (3.4-5.0) gm/dl Globulin 2.7 (2.5-4.0) gm/dl Albumin/Globulin Ratio 1.7 (0.9-2) Adenovirus (PCR) Not Detected (NotDetected) B. pertussis DNA (PCR) Not Detected (NotDetected) B.parapertussis DNA PCR Not Detected (NotDetected) C. pneumoniae DNA (PCR) Not Detected (NotDetected) Coronavirus OC43 (PCR) Not Detected (NotDetected) Coronavirus HKU1 (PCR) Not Detected (NotDetected) Coronavirus 229E (PCR) Not Detected (NotDetected) SARS-CoV-2 (PCR) DETECTED A (NotDetected) Coronavirus NL63 (PCR) Not Detected (NotDetected) Human Metapneumovir PCR Not Detected (NotDetected) Influenza Type A (PCR) Not Detected (NotDetected) Influenza Type B (PCR) Not Detected (NotDetected) M. pneumoniae (PCR) Not Detected (NotDetected) Parainfluenza 1 (PCR) Not Detected (NotDetected) Parainfluenza 2 (PCR) Not Detected (NotDetected) Parainfluenza 3 (PCR) Not Detected (NotDetected) Parainfluenza 4 (PCR) Not Detected (NotDetected) RSV (PCR) Not Detected (NotDetected) Entero/Rhino (PCR) Not Detected (NotDetected) Administered Medications Discontinued Medications Acetaminophen (Ofirmev) 1,000 mg in 100 mls @ 400 mls/hr IV NOW STA Stop: 03/31/24 19:58 Last Admin: 03/31/24 19:59 Dose: Not Given Documented By: [facility] Discharge Plan Visit Data Chief Complaint: Shortness of Breath/Dyspnea Stated Complaint: SOB, WEAKNESS, FLU LIKE SX ED Provider: Elma Quinones Discharge Problem: Generalized weakness, COVID-19 Forms Stand Alone Forms: My [facility] Prescriptions Prescriptions: No Action gabapentin 100 mg capsule See Rx Instructions .ROUTE .COMPLEX Rx Instructions: Rx is for 200 mg QID but per pt she takes it as 100 mg BID because she cut back Referrals Referrals: Megan Cutler MD [Primary Care Provider] -
[2024-03-31] MEDS: ACETAMINOPHEN 1,000 MG/100 ML VIAL IV STA (19:59)
[2024-03-31 20:03] LABS: Albumin Globulin Ratio 1.7 (0.9-2); Albumin Level 4.7 gm/dl (3.4-5.0); BUN Creatinine Ratio 14.6 (10-20); Bilirubin,Total 1.1 mg/dl (0.2-1.0); Calcium 9.6 mg/dl (8.6-10.3); Creatinine Clr Calc Pharmacy 65.8 ml/min; Est GFR (African American) 84.6 ml/min; Globulin 2.7 gm/dl (2.5-4.0); Magnesium 1.7 mg/dl (1.7-2.4); Potassium 3.6 mmol/L (3.5-5.1); Total Protein 7.4 gm/dl (6.0-8.3)
[2024-03-31 20:09] LABS: Troponin I High Sensitivity 4.3 pg/ml (0-14)
[2024-03-31 20:28] LABS: Adenovirus PCR Not Detected (NotDetected); Bordetella parapertussis PCR Not Detected (NotDetected); Bordetella pertussis PCR Not Detected (NotDetected); Chlamydia pneumoniae PCR Not Detected (NotDetected); Coronavirus 229E PCR Not Detected (NotDetected); Coronavirus CoV-2 (COVID19)PCR DETECTED (NotDetected); Coronavirus HKU1 PCR Not Detected (NotDetected); Coronavirus NL63 PCR Not Detected (NotDetected); Coronavirus OC43PCR Not Detected (NotDetected); Human Metapneumovirus PCR Not Detected (NotDetected); Influenza A PCR Not Detected (NotDetected); Influenza B PCR Not Detected (NotDetected); Mycoplasma pneumoniae PCR Not Detected (NotDetected); Parainfluenza Virus 1 PCR Not Detected (NotDetected); Parainfluenza Virus 2 PCR Not Detected (NotDetected); Parainfluenza Virus 3 PCR Not Detected (NotDetected); Parainfluenza Virus 4 PCR Not Detected (NotDetected); Respiratory Syncytial VirusPCR Not Detected (NotDetected); Rhinovirus/Enterovirus PCR Not Detected (NotDetected)
[2024-03-31 20:51] LABS: Prothrombin Time 10.9 Seconds (9.0-12.0)
[2024-03-31] MEDS: dexAMETHasone**PF** 10 MG/ML VIAL IV ONE (22:12)
--- NOTE | 2024-03-31 22:48 | History & Physical Report ---
Date of Service March 31, 2024 Assessment & Plan (1) COVID-19: (2) Fatigue: (3) Generalized weakness: (4) Moderate persistent asthma: (5) Dehydration, mild: Plan COVID-19 infection/progressive fatigue and weakness/ambulatory dysfunction- Presentation is almost identical to that required admission from 05/12- 05/13/2023. Patient reports that she had significant fatigue for several weeks to months after her previous COVID-19 infection She was given dexamethasone 6 mg IV in the ED, and will continue every morning NSS + KCl 20 mill equivalents at 80 mL/h x 1 L Acetaminophen 650 mg by mouth every 6 hours as needed for mild pain or fever Patient was noted to have a mild temperature 37.8 on admission COVID-19 precautions No need for antivirals at this time Right knee pain- Continue gabapentin which she is on chronically History of Present Illness Chief Complaint: The patient presents to the emergency department with complaint of acute onset of severe generalized weakness, and mild shortness of breath, the developed and progressed rapidly within the last 24 hours, after having been around 2 small children yesterday who had a cough and runny nose. Primary Care Provider: Megan Cutler MD The patient is a 68-year-old female with a past medical history including admission for COVID-19 and adenovirus infection from 05/12-05/13/2023, moderate persistent asthma, frequent headaches, and right knee pain treated with gabapentin. Her symptoms and presentation today are almost identical to admission as noted in 2022. [employer] testing was positive for COVID-19 this admission. In addition, she has had decreased oral intake throughout the day today, and feels somewhat dehydrated and weak and on that basis Allergies Allergy/AdvReac Type Severity Reaction Status Date / Time gelatin Allergy Severe "CAN'T Verified 04/01/24 00:35 BREATHE WITH ORANGE JELLO" Penicillins Allergy Severe "CAN'T Verified 03/31/24 22:17 BREATH" Sulfa (Sulfonamide Allergy Severe "CAN'T Verified 03/31/24 22:17 Antibiotics) BREATH" wheat Allergy Severe "CAN'T Verified 03/31/24 22:17 BREATH, FACE SWELLS UP LIKE A BALLOON". Home Medications Medication Instructions Recorded Confirmed Type gabapentin 100 mg capsule See Rx Instructions .Route .COMPLEX 03/12/20 03/31/24 History Past Med/Surg History Problem List (Updated 04/01/24 @ 02:11 by Oscar Doll MD) Fatigue Dehydration, mild COVID-19 (Acute) Generalized weakness (Acute) COVID-19 (Acute) Adenovirus infection (Acute) Back pain (Acute) Accidental fall (Acute) Moderate persistent asthma Overweight (BMI 25.0-29.9) Shortness of breath Shortness of breath Frequent headaches (Acute) Hypokalemia (Acute) Leukocytosis, unspecified (Acute) Shortness of breath (Acute) Weakness (Acute) Family History (Updated 03/12/20 @ 15:46 by JULIA Cuevas) Other Cancer Lung disease Denies family history of Diabetes Heart disease Social History (Updated 03/12/20 @ 15:45 by JULIA Cuevas) Smoking Status: Never smoker Hx Alcohol Use: Yes Hx Substance Use: No Preferred Language: Green[place] [employer] Required: No Beliefs That Will Affect Care: None Current Living Situation: Alone Feels Safe at Home: Yes Assistive Devices: Cane Review of Systems Review of Systems: The patient denies chest pain, palpitations, lower extremity swelling, sore throat, fevers, chills, sweats, nausea, vomiting, diarrhea , constipation, abdominal pain, pelvic pain, blood in urine or stool, dysuria, urinary frequency or urgency, memory loss, loss of consciousness, rash, abnormal bruising or bleeding, imbalance, focal weakness, numbness or tingling in arms or legs, back or neck pain, or night sweats. The review of systems is otherwise negative other than for that already noted above, and at least 10 systems have been reviewed. Physical Exam Physical Exam: The patient is awake, alert and oriented 3, well developed and well nourished, normocephalic and atraumatic, lying in bed and in no acute distress. HEENT--PERRL, EOMI, mucous membranes and oropharynx mildly dry. Neck--supple. No JVD. No bruits. Thyroid normal, trachea midline, no adenopathy. Heart--normal S1 and S2. No murmurs, rubs or gallops. Lungs--clear bilaterally, no respiratory distress, no accessory muscle use. Abdomen--normal bowel sounds and soft. Nontender. Nondistended, no hernias or masses, no organomegaly. Extremities--no cyanosis or clubbing. No edema. There are good distal pulses b/ l. Dermatologic--normal skin turgor, normal color, no abnormal lymph nodes, no rash. Neurologic--cranial nerves II through XII grossly intact. Rheumatologic--normal range of motion. Psychiatric--normal affect. Results & Data Results & Data Vital Signs (Past 12 Hours) Vital Signs Temp Pulse Resp BP Pulse Ox O2 Del Method O2 Flow Rate 03/31/24 21:00 98 H 25 H 93 03/31/24 21:00 146/85 H 03/31/24 21:00 146/85 H 03/31/24 20:45 100 H 22 92 03/31/24 20:30 140/83 03/31/24 20:18 102 H 24 94 03/31/24 19:39 100 H 22 148/98 H 92 03/31/24 19:35 37.8 C H 103 H 16 161/86 H 94 Room Air 03/31/24 19:35 Room Air 94 03/31/24 19:34 103 H 18 94 Room Air 03/31/24 19:30 148/98 H 03/31/24 19:27 101 H 24 135/91 91 03/31/24 19:24 103 H Laboratory Results Laboratory Results WBC 8.50 K/ul (4.8-10.8) 03/31/24 19:35 RBC 5.05 M/uL (4.20-5.40) 03/31/24 19:35 Hgb 14.4 g/dl (12.0-16.0) 03/31/24 19:35 Hct 43.3 % (37.0-47.0) 03/31/24 19:35 MCV 85.7 fL (80.0-100.0) 03/31/24 19:35 MCH 28.5 pg (25.0-34.0) 03/31/24 19:35 MCHC 33.3 g/dL (32.0-36.0) 03/31/24 19:35 RDW Std Deviation 39.3 fL (36.4-46.3) 03/31/24 19:35 RDW Coeff of Raymond 12.7 % (11.5-14.5) 03/31/24 19:35 Plt Count 141 K/uL (130-400) 03/31/24 19:35 MPV 9.9 fL (9.4-12.4) 03/31/24 19:35 Immature Gran % (Auto) 0.2 % 03/31/24 19:35 Neut % (Auto) 85.5 % 03/31/24 19:35 Lymph % (Auto) 8.4 % 03/31/24 19:35 [place] % (Auto) 4.5 % 03/31/24 19:35 Eos % (Auto) 0.9 % 03/31/24 19:35 Baso % (Auto) 0.5 % 03/31/24 19:35 Neut # (Auto) 7.27 K/uL (1.40-6.50) H 03/31/24 19:35 Lymph # (Auto) 0.71 K/uL (1.20-3.40) L 03/31/24 19:35 [place]ford # (Auto) 0.38 K/uL (0.11-0.59) 03/31/24 19:35 Eos # (Auto) 0.08 K/uL (0.00-0.50) 03/31/24 19:35 Baso # (Auto) 0.04 K/uL (0.00-0.20) 03/31/24 19:35 Immature Gran # (Auto) 0.02 K/uL (0.01-0.20) 03/31/24 19:35 PT 10.9 Seconds (9.0-12.0) 03/31/24 20:28 INR 1.0 (0.9-1.1) 03/31/24 20:28 VBG pH 7.47 (7.36-7.41) H 03/31/24 19:35 VBG pCO2 30 mmHg (38-50) L 03/31/24 19:35 VBG pO2 126 mmHg 03/31/24 19:35 VBG HCO3 22 mmol/L 03/31/24 19:35 VBG O2 Saturation 96.7 % 03/31/24 19:35 VBG Base Excess -0.9 mEq/L 03/31/24 19:35 Sodium 139 mmol/L (136-145) 03/31/24 19:35 Potassium 3.6 mmol/L (3.5-5.1) 03/31/24 19:35 Chloride 106 mmol/L (98-107) 03/31/24 19:35 Carbon Dioxide 23 mmol/L (21-32) 03/31/24 19:35 Anion Gap 10 (3-11) 03/31/24 19:35 BUN 12 mg/dl (6-23) 03/31/24 19:35 Creatinine 0.82 mg/dl (0.6-1.2) 03/31/24 19:35 Est Cr Clr Drug Dosing 65.8 ml/min 03/31/24 19:35 Est GFR ( Amer) 84.6 ml/min 03/31/24 19:35 Est GFR (Non-Af Amer) 73.0 ml/min 03/31/24 19:35 BUN/Creatinine Ratio 14.6 (10-20) 03/31/24 19:35 Glucose 140 mg/dl (70-99(Fasting)) H 03/31/24 19:35 Calcium 9.6 mg/dl (8.6-10.3) 03/31/24 19:35 Magnesium 1.7 mg/dl (1.7-2.4) 03/31/24 19:35 Total Bilirubin 1.1 mg/dl (0.2-1.0) H 03/31/24 19:35 AST 17 U/L (13-39) 03/31/24 19:35 ALT 16 U/L (7-52) 03/31/24 19:35 Alkaline Phosphatase 102 U/L (34-104) 03/31/24 19:35 Troponin I High Sens 4.3 pg/ml (0-14) 03/31/24 19:35 B-Natriuretic Peptide 49 pg/ml (0-100) 03/31/24 19:35 Total Protein 7.4 gm/dl (6.0-8.3) 03/31/24 19:35 Albumin 4.7 gm/dl (3.4-5.0) 03/31/24 19:35 Globulin 2.7 gm/dl (2.5-4.0) 03/31/24 19:35 Albumin/Globulin Ratio 1.7 (0.9-2) 03/31/24 19:35 Adenovirus (PCR) Not Detected (NotDetected) 03/31/24 19:35 B. pertussis DNA (PCR) Not Detected (NotDetected) 03/31/24 19:35 B.parapertussis DNA PCR Not Detected (NotDetected) 03/31/24 19:35 C. pneumoniae DNA (PCR) Not Detected (NotDetected) 03/31/24 19:35 Coronavirus OC43 (PCR) Not Detected (NotDetected) 03/31/24 19:35 Coronavirus HKU1 (PCR) Not Detected (NotDetected) 03/31/24 19:35 Coronavirus 229E (PCR) Not Detected (NotDetected) 03/31/24 19:35 SARS-CoV-2 (PCR) DETECTED (NotDetected) A 03/31/24 19:35 Coronavirus NL63 (PCR) Not Detected (NotDetected) 03/31/24 19:35 Human Metapneumovir PCR Not Detected (NotDetected) 03/31/24 19:35 Influenza Type A (PCR) Not Detected (NotDetected) 03/31/24 19:35 Influenza Type B (PCR) Not Detected (NotDetected) 03/31/24 19:35 M. pneumoniae (PCR) Not Detected (NotDetected) 03/31/24 19:35 Parainfluenza 1 (PCR) Not Detected (NotDetected) 03/31/24 19:35 Parainfluenza 2 (PCR) Not Detected (NotDetected) 03/31/24 19:35 Parainfluenza 3 (PCR) Not Detected (NotDetected) 03/31/24 19:35 Parainfluenza 4 (PCR) Not Detected (NotDetected) 03/31/24 19:35 RSV (PCR) Not Detected (NotDetected) 03/31/24 19:35 Entero/Rhino (PCR) Not Detected (NotDetected) 03/31/24 19:35 Code Status & VTE Plan Code Status Full code VTE Prophylaxis Plan VTE Prophylaxis will be ordered: Yes PG Care Time/CCT Total # of Minutes Spent Total Time Spent with Patient: Total time spent is greater than 50% in coordination of care (as documented) at patient's floor/unit and/or counseling patient: Coding Level of Care Code 61933 INT INP/OBS CARE 2/55MIN Diagnoses COVID-19 U07.1 Fatigue R53.83 Generalized weakness R53.1 Moderate persistent asthma without complication J45.40 Asthma complication type: uncomplicated Dehydration, mild E86.0 (4) Moderate persistent asthma Asthma complication type: uncomplicated Qualified Code(s): J45.40 - Moderate persistent asthma, uncomplicated
[2024-04-01] MEDS ORDERED: ACETAMINOPHEN 325 MG TAB PO PRN (00:24)
[2024-04-01] MEDS: NSS + 20MEQ KCL 20 MEQ/1,000 ML BAG IV SCH (01:12)
[2024-04-01 05:49] LABS: Appearance Urine Clear (Clear); Bilirubin Urine Negative (Negative); Blood Urine Negative (Negative); Color Urine Yellow; Glucose Urine UA Negative (Negative); Ketones Urine Negative (Negative); Leukocyte Esterase Urine Negative (Negative); Nitrite Urine Negative (Negative); Protein Urine Negative (Negative); Specific Gravity Urine 1.011 (1.000-1.030); Urobilinogen Urine Negative (Negative); pH Urine 6.5 (4.5-7.5)
[2024-04-01 07:29] LABS: Basophils # (auto) 0.01 K/uL (0.00-0.20); Basophils % (auto) 0.2 %; Hematocrit (blood only) 40.9 % (37.0-47.0); Hemoglobin 13.8 g/dl (12.0-16.0); Immature Granulocytes # (auto) 0.02 K/uL (0.01-0.20); Immature Granulocytes % (auto) 0.3 %; Lymphocytes # (auto) 0.76 K/uL (1.20-3.40); Lymphocytes % (auto) 12.2 %; Mean Corpuscular Hemoglobin 29.4 pg (25.0-34.0); Mean Corpuscular Hgb Conc 33.7 g/dL (32.0-36.0); Mean Platelet Volume 10.3 fL (9.4-12.4); Monocytes # (auto) 0.15 K/uL (0.11-0.59); Monocytes % (auto) 2.4 %; Neutrophils # (auto) 5.29 K/uL (1.40-6.50); Neutrophils % (auto) 84.9 %; Platelet Count 148 K/uL (130-400); RDW Coefficient of Variation 12.7 % (11.5-14.5); RDW Standard Deviation 40.1 fL (36.4-46.3); White Blood Count 6.23 K/ul (4.8-10.8)
--- NOTE | 2024-04-01 07:29 | Electrocardiogram Report ---
Test Reason : Blood Pressure : */* mmHG Vent. Rate : 102 BPM Atrial Rate : 102 BPM P-R Int : 140 ms QRS Dur : 94 ms QT Int : 332 ms P-R-T Axes : 36 -24 -37 degrees QTcB Int : 432 ms Sinus tachycardia Minimal voltage criteria for LVH, may be normal variant Incomplete right bundle branch block Poor R wave progression, consider anterior AK vs. lead placement vs. LVH Abnormal ECG When compared with ECG of 25-Nov-2015 13:21, Nonspecific T wave abnormality now evident in Anterolateral leads Confirmed by Lonny Carrero ([id number]) on 04/01/2024 7:29:22 AM Referred By: Confirmed By: Lonny Carrero
--- NOTE | 2024-04-01 07:46 | XRay Report ---
XR chest 1V portable CLINICAL HISTORY: Dyspnea. COMPARISON STUDY: Chest radiograph May 12, 2023. FINDINGS: A chondroid lesion within the left humeral neck is unchanged from earlier exams and favors an enchondroma. Lung volumes are normal. Lungs are clear. There is no pneumothorax or pleural effusio n. Cardiac size is normal. Mediastinal contours are normal. There is no evidence for pulmonary edema. IMPRESSION: No acute cardiopulmonary findings. No change in appearance of the chest. ACT 112: Negative or not required by law. Electronically signed by: Vinnie Russo M.D. 04/01/2024 7:45 AM
--- NOTE | 2024-04-01 07:49 | Hospitalist Progress Note ---
Date of Service April 01, 2024 Assessment & Plan (1) COVID-19: (2) Fatigue: (3) Generalized weakness: (4) Moderate persistent asthma: (5) Dehydration, mild: Plan COVID-19 infection/progressive fatigue and weakness/ambulatory dysfunction- Presentation is almost identical to that required admission from 05/12- 05/13/2023. Patient reports that she had significant fatigue for several weeks to months after her previous COVID-19 infection She was given dexamethasone 6 mg IV in the ED, and will continue every morning NSS + KCl 20 mill equivalents at 80 mL/h x 1 L Acetaminophen 650 mg by mouth every 6 hours as needed for mild pain or fever Patient was noted to have a mild temperature 37.8 on admission COVID-19 precautions No need for antivirals at this time Right knee pain- Continue gabapentin which she is on chronically Admission and Anticipated Discharge Date Admission Date: March 31, 2024 Results & Data Results & Data Vital Signs (Past 12 Hours) Vital Signs Temp Pulse Pulse Resp BP BP Pulse Ox 04/01/24 07:00 81 04/01/24 03:04 36.9 C 81 18 113/74 96 04/01/24 01:16 37.4 C 04/01/24 00:28 87 04/01/24 00:10 04/01/24 00:10 36.8 C 87 18 107/71 97 03/31/24 23:19 89 03/31/24 21:00 98 H 25 H 93 03/31/24 21:00 146/85 H 03/31/24 21:00 146/85 H 03/31/24 20:45 100 H 22 92 03/31/24 20:30 140/83 03/31/24 20:18 102 H 24 94 O2 Del Method 04/01/24 07:00 04/01/24 03:04 Room Air 04/01/24 01:16 04/01/24 00:28 04/01/24 00:10 Room Air 04/01/24 00:10 Room Air 03/31/24 23:19 03/31/24 21:00 03/31/24 21:00 03/31/24 21:00 03/31/24 20:45 03/31/24 20:30 03/31/24 20:18 PG Care Time/CCT Total # of Minutes Spent Total Time Spent with Patient: Total time spent is greater than 50% in coordination of care (as documented) at patient's floor/unit and/or counseling patient: Coding Diagnoses COVID-19 U07.1 Fatigue R53.83 Generalized weakness R53.1 Moderate persistent asthma without complication J45.40 Asthma complication type: uncomplicated Dehydration, mild E86.0 (4) Moderate persistent asthma Asthma complication type: uncomplicated Qualified Code(s): J45.40 - Moderate persistent asthma, uncomplicated
[2024-04-01 07:51] LABS: Albumin Level 4.4 gm/dl (3.4-5.0); BUN Creatinine Ratio 18.7 (10-20); Calcium 9.3 mg/dl (8.6-10.3); Creatinine Clr Calc Pharmacy 71.5 ml/min; Est GFR (African American) 94.3 ml/min; Est GFR (Non-African American) 81.3 ml/min; Phosphorus 3.1 mg/dl (2.5-4.9); Potassium 3.9 mmol/L (3.5-5.1)
[2024-04-01 08:06] VITALS: PULSE 76
[2024-04-01] MEDS: ENOXAPARIN INJ 40 MG/0.4 ML SYR SQ SCH (09:08)
[2024-04-01] MEDS: GABAPENTIN 100 MG CAP PO SCH (09:08)
[2024-04-01] MEDS: dexAMETHasone 6 MG in SYRINGE 0 ML IV SCH (09:08)
[2024-04-01 11:10] VITALS: BP 110/68; RESP 15; TEMP 98.2; O2SAT 96
--- NOTE | 2024-04-01 14:39 | Discharge Summary ---
Discharge Summary Date of Service April 01, 2024 Principal Dx & Hospital Course #1 = Principal Diagnosis (1) COVID-19: (2) Fatigue: (3) Generalized weakness: (4) Moderate persistent asthma: (5) Dehydration, mild: Plan COVID-19 infection/progressive fatigue and weakness/ambulatory dysfunction- Presentation is almost identical to that required admission from 05/12- 05/13/2023. Patient reports that she had significant fatigue for several weeks to months after her previous COVID-19 infection Pt received decadron while inpt, no further steroids on discharge Pt evaluated by PT / OT cleared for home Ambulatory pulse ox stable Right knee pain- Continue gabapentin which she is on chronically Admission HPI Per Admitting Provider The patient is a 68-year-old female with a past medical history including admission for COVID-19 and adenovirus infection from 05/12-05/13/2023, moderate persistent asthma, frequent headaches, and right knee pain treated with gabapentin. Her symptoms and presentation today are almost identical to admission as noted in 2022. [employer] testing was positive for COVID-19 this admission. In addition, she has had decreased oral intake throughout the day today, and feels somewhat dehydrated and weak and on that basis Discharge Exam Gen: no acute distress, in bed comfortable HEENT: NC/AT, MMM Lungs: CTAB CVS: s1s2 nl, RRR Abd: soft, NT, nl BS : no gruber Ext: no edema Psych: pleasant Discharge Plan Discharge Items Patient Disposition: Home - Self-Care Reason For Visit: COVID INFECTION, WEAKNESS Discharge Diagnosis: COVID infection Activity: Resume your previous activity Non-emergency contact: Primary Care Provider Call non-emergency contact if: you have any medication questions, your symptoms worsen and you have a fever Follow-up/Referrals: Megan Cutler MD [Primary Care Provider] - Diet: Regular Addtl Attending Provider Instructions: Cont precautions for covid Pls follow up with your PCP in about 7 to 10 days If your symptoms significantly worsen and you are severely weak, has trouble breathing, please return to the hospital Pending Studies at Discharge: No Stand-Alone Forms: My [facility] Medications and DC Order Prescriptions: Continued gabapentin 100 mg capsule See Rx Instructions .ROUTE .COMPLEX Rx Instructions: TAKES 200 MG QAM, THEN 100 MG QPM. Discharge Orders: Discharge Order (Routine); Ordered 04/01/24 Ordered By: Maggie Galvan Admission Data Admit Date/Time: 03/31/24 22:47 Attending Provider: Maggie Galvan Admit Provider: Oscar Doll Primary Care Provider: Megan Cutler Other Providers: Oscar Doll Hospital Stay Data Consultations 03/31/24 22:04 ED Decision to Admit Stat Discharge Instructions Given to Patient (Per Discharging Provider) Cont precautions for covid Pls follow up with your PCP in about 7 to 10 days If your symptoms significantly worsen and you are severely weak, has trouble breathing, please return to the hospital Total Time Total Time Spent Total Time Spent (In Minutes): 60 Coding Level of Care Code 44773 INP/OBS DISCH >30 MIN Diagnoses COVID-19 U07.1 Fatigue R53.83 Generalized weakness R53.1 Moderate persistent asthma without complication J45.40 Asthma complication type: uncomplicated Dehydration, mild E86.0
== END 2024-04-01 15:57 | disposition home or self-care (01) ==
LOC: 2W 19:18 → ED 19:18 → SUATTDRO 22:47 → 2W 23:34